=== PATIENT | female | born 1945 | race Caucasian/White ===

== ENCOUNTER 2017-12-07 08:00 | Outpatient (CLI) | payer MEDICARE ==
[2015-02-20 12:46] VITALS: BMI 27.4
[~2017-12-07 08:00] MED LIST: CEFAZOLIN2 GM/50 ML IV; CELEXA20 MG PO; DEMEROL50 MG PO; HYDROCODONE-APA1 TAB PO; PREDNISONE10 MG PO; RESTORIL15 MG PO; VOLTAREN25 MG PO; ZESTRIL10 MG PO; [UNRECOGNIZED DRUG - MIXTURE] IV
== END 2017-12-07 09:00 | disposition home or self-care (01) ==
LOC: D.MAMMO 08:00
DX: Z12.31 Encounter for screening mammogram for malignant neoplasm of breast (principal)

== ENCOUNTER 2018-01-07 11:00 | Outpatient (CLI) | payer MEDICARE ==
[2015-02-20 12:46] VITALS: BMI 27.4
== END 2018-01-07 11:40 | disposition left against medical advice (07) ==
LOC: D.MAMMO 11:00
DX: R92.8 Other abnormal and inconclusive findings on diagnostic imaging of breast (principal)

== ENCOUNTER 2018-05-25 10:05 | Inpatient (IN) | payer MEDICARE, MEDICAID ==
[~2018-05-25] VITALS: Ht 154.9 cm; Wt 60.5 kg
[2018-05-25] MEDS ORDERED: NORVASC10 MG PO (10:24)
[2018-05-25] MEDS ORDERED: CATAPRES0.1 MG PO (10:24)
[2018-05-25] MEDS ORDERED: BREO ELLIPTA 21 EACH (10:25)
[2018-05-25] MEDS ORDERED: ZITHROMAX250 MG PO (10:25)
[2018-05-25] MEDS ORDERED: METOPROLOL TART50 MG PO (10:26)
[2018-05-25] MEDS ORDERED: ALBUTEROL2.5 MG/3 M INH (10:26)
[2018-05-25] MEDS ORDERED: NORCO 10-325 TA1 TAB PO (10:27)
[2018-05-25 11:08] LABS: BASOPHILS 0.4 % (0-2); EOSINOPHILS 2.8 % (0-7); HEMATOCRIT 34.6 % (36.0-48.0); HEMOGLOBIN 11.1 g/dL (12-16); IMMATURE GRANULOCYTES 0.4 % (0-5); LYMPHOCYTES 12.1 % (15-50); MCH 28.7 pg (26.0-34.0); MCHC 32.1 g/dL (31.0-37.0); MCV 89.4 fL (80.0-100.0); MEAN PLATELET VOLUME 10.3 fL (7.4-10.4); NEUTROPHILS 77.3 % (40-80); PLATELET COUNT 468 10x3/uL (130-400); RBC 3.87 10x6/uL (4.00-5.40); RDW 15.2 % (11.5-14.5); WBC 13.9 10x3/uL (4.8-10.8)
[2018-05-25 11:28] LABS: ANION GAP 15.2 mmol/L (8-16); BILIRUBIN - TOTAL 0.28 mg/dL (0.2-1.3); CALCIUM 8.8 mg/dL (8.5-10.1); CARBON DIOXIDE 26.7 mmol/L (21.0-32.0); CREATININE - SERUM 0.8 mg/dL (0.6-1.3); POTASSIUM - SERUM 3.9 mmol/L (3.5-5.1); PROTEIN - SERUM 7.3 g/dL (6.4-8.2)
[2018-05-25 13:25] LABS: APPEARANCE CLEAR (CLEAR); BILIRUBIN NEGATIVE (NEGATIVE); COLOR YELLOW (YELLOW); EPITHELIAL CELLS 0-5 /hpf (0-5); GLUCOSE NEGATIVE (NEGATIVE); KETONE SMALL mg/dL (NEGATIVE); NITRITE NEGATIVE (NEGATIVE); PROTEIN NEGATIVE (NEGATIVE); RED CELLS - URINE NONE SEEN /hpf (0-5); SPECIFIC GRAVITY 1.015 (1.005-1.020); UROBILINOGEN NORMAL (NORMAL); WHITE CELLS - URINE NSEEN /hpf (0-5)
[2018-05-25 15:54] VITALS: BP 136/67
[2018-05-25 16:21] VITALS: BP 136/67; BMI 24.6
[2018-05-25 20:00] VITALS: BP 117/61
[2018-05-26] VITALS: BP 123/51
[2018-05-26 04:00] VITALS: BP 126/72
[2018-05-26 05:24] LABS: BASOPHILS 0.3 % (0-2); EOSINOPHILS 1.8 % (0-7); HEMATOCRIT 31.6 % (36.0-48.0); HEMOGLOBIN 10.1 g/dL (12-16); IMMATURE GRANULOCYTES 0.3 % (0-5); LYMPHOCYTES 14.8 % (15-50); MCH 28.5 pg (26.0-34.0); MEAN PLATELET VOLUME 9.7 fL (7.4-10.4); MONOCYTES 9.3 % (2-11); NEUTROPHILS 73.5 % (40-80); PLATELET COUNT 409 10x3/uL (130-400); RBC 3.55 10x6/uL (4.00-5.40); RDW 14.9 % (11.5-14.5); WBC 11.7 10x3/uL (4.8-10.8)
[2018-05-26 05:47] LABS: ALBUMIN 2.5 g/dL (3.4-5.0); ANION GAP 11.6 mmol/L (8-16); BILIRUBIN - TOTAL 0.21 mg/dL (0.2-1.3); CALCIUM 9.1 mg/dL (8.5-10.1); CARBON DIOXIDE 30.6 mmol/L (21.0-32.0); CREATININE - SERUM 0.8 mg/dL (0.6-1.3); MAGNESIUM - SERUM 1.8 mg/dL (1.8-2.4); POTASSIUM - SERUM 4.2 mmol/L (3.5-5.1); PROTEIN - SERUM 6.4 g/dL (6.4-8.2)
[2018-05-26 07:53] VITALS: BP 123/42
[2018-05-26 11:41] VITALS: BP 137/72
[2018-05-26] MEDS ORDERED: CYCLOBENZAPRINE10 MG PO (12:36)
[2018-05-26 13:07] VITALS: BMI 24.5
[2018-05-26 15:02] VITALS: BP 114/65
[2018-05-26] MEDS ORDERED: RESTORIL15 MG PO (15:24)
[2018-05-26 20:00] VITALS: BP 136/77
[2018-05-27] VITALS: BP 112/70
[2018-05-27 04:00] VITALS: BP 130/61
[2018-05-27 06:20] LABS: BASOPHILS 0.3 % (0-2); EOSINOPHILS 1.9 % (0-7); HEMATOCRIT 32.2 % (36.0-48.0); HEMOGLOBIN 10.3 g/dL (12-16); IMMATURE GRANULOCYTES 0.4 % (0-5); LYMPHOCYTES 18.1 % (15-50); MCH 28.6 pg (26.0-34.0); MCV 89.4 fL (80.0-100.0); MEAN PLATELET VOLUME 9.9 fL (7.4-10.4); MONOCYTES 9.6 % (2-11); NEUTROPHILS 69.7 % (40-80); PLATELET COUNT 423 10x3/uL (130-400); RDW 14.9 % (11.5-14.5); WBC 11.9 10x3/uL (4.8-10.8)
[2018-05-27 06:48] LABS: ALBUMIN 2.5 g/dL (3.4-5.0); ALKALINE PHOSPHATASE 116 U/L (46-116); ALT (SGPT) 18 U/L (10-68); CALC OSMOLALITY 272 mosm/kg (275-300); CALCIUM 8.8 mg/dL (8.5-10.1); CARBON DIOXIDE 30.6 mmol/L (21.0-32.0); CHLORIDE - SERUM 99 mmol/L (98-107); CREATININE - SERUM 0.7 mg/dL (0.6-1.3); GLUCOSE 95 mg/dL (74-106); MAGNESIUM - SERUM 1.7 mg/dL (1.8-2.4); POTASSIUM - SERUM 4.1 mmol/L (3.5-5.1); PROTEIN - SERUM 6.4 g/dL (6.4-8.2); SODIUM 138 mmol/L (136-145); eGFR NON AFRICAN AMERICAN 87 mL/min (90-120)
[2018-05-27 06:53] LABS: UREA NITROGEN 5 mg/dL (7-18)
[2018-05-27 08:34] VITALS: BP 137/56
--- NOTE | 2018-05-27 09:41 | EC ---
PATIENT:JORGE GARCIA DATE OF SERVICE: 05/25/18 SEX: F MEDICAL RECORD: [id number] DATE OF : 45 LOCATION:D.M2 D.213 AGE OF PATIENT: 73 ADMISSION DATE: 05/25/18 REFERRING PHYSICIAN: INTERPRETING PHYSICIAN: MARY ROSS MD ECHOCARDIOGRAM REPORT ECHO CHARGES 4 ECHO COMPLETE Date: 05/26/18 CLINICAL DIAGNOSIS: DYSPNEA HX OF HTN ECHOCARDIOGRAPHIC MEASUREMENTS (adult normal given) AC root (d.<3.7cm) 4.2 cm LV Septum d (<1.2 cm> 1.2 cm Valve Excursion 1.5 cm LV Septum (systole) 1.5 cm Left Atria (s.<4.0cm> 3.5 cm LVPW d(<1.2cm) 1.7 cm RV (d.<2.3cm) 3.1 cm LVPW (sytole) 1.9 cm LV diastole(<5.6CM) 4.4 cm MV E-F(>70mm/sec) cm LV systole 2.6 cm LVOT Diameter 1.9 cm MV exc.(>10mm) cm Est.ejection fraction (50-75%) % DOPPLER: LVIT cm/sec A 106 cm/sec E 78.0 cm/sec LA cm/sec RVSP 37 mmHg LVOT 123 cm/sec AOP1/2T m/s Asc. Ao 188 cm/sec RVOT 88 cm/sec RA cm/sec PA 134 cm/sec AV Gradient Peak 14.13mmHg AV Mean 6.51 mmHg AV Area 2.3 cm MV Gradient Peak 4.30 mmHg MV Mean 1.72 mmHg MV Area cm COMMENTS: Road Mender: 2 RISHI BERMUDEZ Automatic Coin Machine Mechanic: 1 Dr. Ross TAPE# PACS Pericardial Effusion Y DATE OF SERVICE: FINDINGS: 1. Left ventricular chamber size is within normal limits. Left ventricular systolic function is normal. Overall ejection fraction estimated at 60%. 2. Left atrium, right atrium, and right ventricular chamber sizes are within normal limits. 3. Valvular structures have normal structure and motion. 4. Doppler interrogation reveals only tqik-id-nymhyfcc tricuspid regurgitation. No other valvular insufficiency or stenosis. Pulmonary systolic pressure is ECHOCARDIOGRAM REPORT [id number] JORGE GARCIA estimated 37 mmHg. 5. No evidence of pericardial effusion or left ventricular thrombus. TRANSINT:[id number] Voice Confirmation ID: [id number] DOCUMENT ID: [id number] MARY ROSS MD at 0941 CC: [id number] DICTATION DATE: 05/26/18 1250 LAP RUNNER: 05/26/18 1436 ADM IN [facility] [address] [place] [address]
[2018-05-27 11:28] VITALS: BP 139/73
[2018-05-27 16:09] VITALS: BP 128/65
[2018-05-27 20:00] VITALS: BP 140/67
[2018-05-27 20:22] VITALS: Ht 154.9 cm; Wt 60.5 kg
[2018-05-28] VITALS: BP 128/64
[2018-05-28 04:00] VITALS: BP 127/76
[2018-05-28 06:39] LABS: BASOPHILS 0.5 % (0-2); EOSINOPHILS 2.3 % (0-7); HEMATOCRIT 32.9 % (36.0-48.0); HEMOGLOBIN 10.5 g/dL (12-16); IMMATURE GRANULOCYTES 0.3 % (0-5); LYMPHOCYTES 13.6 % (15-50); MCH 28.5 pg (26.0-34.0); MCHC 31.9 g/dL (31.0-37.0); MCV 89.2 fL (80.0-100.0); MEAN PLATELET VOLUME 9.9 fL (7.4-10.4); MONOCYTES 7.1 % (2-11); NEUTROPHILS 76.2 % (40-80); PLATELET COUNT 433 10x3/uL (130-400); RBC 3.69 10x6/uL (4.00-5.40); RDW 14.8 % (11.5-14.5); WBC 11.9 10x3/uL (4.8-10.8)
[2018-05-28 07:21] LABS: ALBUMIN 2.5 g/dL (3.4-5.0); ALKALINE PHOSPHATASE 110 U/L (46-116); ALT (SGPT) 21 U/L (10-68); BILIRUBIN - TOTAL 0.21 mg/dL (0.2-1.3); CALC OSMOLALITY 272 mosm/kg (275-300); CALCIUM 9.1 mg/dL (8.5-10.1); CHLORIDE - SERUM 101 mmol/L (98-107); CREATININE - SERUM 0.6 mg/dL (0.6-1.3); GLUCOSE 96 mg/dL (74-106); MAGNESIUM - SERUM 1.9 mg/dL (1.8-2.4); POTASSIUM - SERUM 3.7 mmol/L (3.5-5.1); PROTEIN - SERUM 6.5 g/dL (6.4-8.2); SODIUM 138 mmol/L (136-145); UREA NITROGEN 5 mg/dL (7-18); eGFR NON AFRICAN AMERICAN > 90 mL/min (90-120)
[2018-05-28 09:02] VITALS: BP 132/60
[2018-05-28 13:32] VITALS: BP 113/38
[2018-05-28 16:49] VITALS: BP 122/51
[2018-05-28 20:30] VITALS: BP 130/54
[2018-05-29 00:30] VITALS: BP 126/58
[2018-05-29 04:30] VITALS: BP 129/68
[2018-05-29 06:13] LABS: BASOPHILS 0.3 % (0-2); EOSINOPHILS 2.8 % (0-7); HEMATOCRIT 30.9 % (36.0-48.0); HEMOGLOBIN 9.8 g/dL (12-16); IMMATURE GRANULOCYTES 0.5 % (0-5); LYMPHOCYTES 11.4 % (15-50); MCH 28.5 pg (26.0-34.0); MCHC 31.7 g/dL (31.0-37.0); MCV 89.8 fL (80.0-100.0); MEAN PLATELET VOLUME 9.7 fL (7.4-10.4); MONOCYTES 10.1 % (2-11); NEUTROPHILS 74.9 % (40-80); PLATELET COUNT 416 10x3/uL (130-400); RBC 3.44 10x6/uL (4.00-5.40); RDW 14.8 % (11.5-14.5); WBC 11.6 10x3/uL (4.8-10.8)
[2018-05-29 06:47] LABS: ALBUMIN 2.4 g/dL (3.4-5.0); ANION GAP 11.2 mmol/L (8-16); BILIRUBIN - TOTAL 0.17 mg/dL (0.2-1.3); CALCIUM 8.8 mg/dL (8.5-10.1); CARBON DIOXIDE 29.7 mmol/L (21.0-32.0); MAGNESIUM - SERUM 1.7 mg/dL (1.8-2.4); POTASSIUM - SERUM 3.9 mmol/L (3.5-5.1); PROTEIN - SERUM 6.2 g/dL (6.4-8.2)
[2018-05-29 06:48] LABS: CREATININE - SERUM 0.8 mg/dL (0.6-1.3)
[2018-05-29 09:32] VITALS: BP 139/68
[2018-05-29 13:17] VITALS: BP 119/49
[2018-05-29 17:22] VITALS: BP 137/54
[2018-05-29 20:30] VITALS: BP 146/80
[2018-05-30 00:30] VITALS: BP 127/55
[2018-05-30 04:30] VITALS: BP 135/61
[2018-05-30 06:09] LABS: BASOPHILS 0.3 % (0-2); EOSINOPHILS 2.7 % (0-7); HEMOGLOBIN 9.5 g/dL (12-16); IMMATURE GRANULOCYTES 0.3 % (0-5); MCH 28.4 pg (26.0-34.0); MCHC 31.7 g/dL (31.0-37.0); MCV 89.8 fL (80.0-100.0); MEAN PLATELET VOLUME 9.5 fL (7.4-10.4); MONOCYTES 8.1 % (2-11); NEUTROPHILS 76.6 % (40-80); PLATELET COUNT 394 10x3/uL (130-400); RBC 3.34 10x6/uL (4.00-5.40); RDW 14.6 % (11.5-14.5); WBC 10.4 10x3/uL (4.8-10.8)
[2018-05-30 06:44] LABS: ALBUMIN 2.4 g/dL (3.4-5.0); ANION GAP 11.5 mmol/L (8-16); BILIRUBIN - TOTAL 0.14 mg/dL (0.2-1.3); CARBON DIOXIDE 30.6 mmol/L (21.0-32.0); CREATININE - SERUM 0.8 mg/dL (0.6-1.3); POTASSIUM - SERUM 4.1 mmol/L (3.5-5.1)
[2018-05-30 06:53] LABS: INR 1.05 (0.85-1.17); PROTIME 13.2 SECONDS (11.6-15.0)
[2018-05-30 08:24] VITALS: BP 136/71
[2018-05-30 10:59] VITALS: BP 133/68
[2018-05-30 15:55] VITALS: BP 126/78
[2018-05-30 20:00] VITALS: BP 136/71
[2018-05-31] VITALS (12 sets, daily range): BP systolic 106–150; BP diastolic 58–76
[2018-05-31 06:21] LABS: BASOPHILS 0.5 % (0-2); EOSINOPHILS 2.3 % (0-7); HEMATOCRIT 29.9 % (36.0-48.0); HEMOGLOBIN 9.4 g/dL (12-16); IMMATURE GRANULOCYTES 0.4 % (0-5); LYMPHOCYTES 12.1 % (15-50); MCHC 31.4 g/dL (31.0-37.0); MEAN PLATELET VOLUME 9.8 fL (7.4-10.4); MONOCYTES 10.1 % (2-11); NEUTROPHILS 74.6 % (40-80); PLATELET COUNT 417 10x3/uL (130-400); RBC 3.36 10x6/uL (4.00-5.40); RDW 14.4 % (11.5-14.5); WBC 10.9 10x3/uL (4.8-10.8)
[2018-05-31 06:45] LABS: ALBUMIN 2.6 g/dL (3.4-5.0); BILIRUBIN - TOTAL 0.2 mg/dL (0.2-1.3); CALCIUM 9.1 mg/dL (8.5-10.1); CARBON DIOXIDE 29.9 mmol/L (21.0-32.0); CREATININE - SERUM 0.8 mg/dL (0.6-1.3); POTASSIUM - SERUM 3.9 mmol/L (3.5-5.1); PROTEIN - SERUM 6.4 g/dL (6.4-8.2)
[2018-05-31 16:11] LABS: PROTEIN - BODY FLUID 3.2 G/DL
[2018-05-31 22:16] LABS: MACROPHAGES BF 12 %; MESOTHELIALS BF 14 %; NEUT - BF 5 %
[2018-06-01 01:14] VITALS: BP 111/66
[2018-06-01 05:54] VITALS: BP 103/54
[2018-06-01 08:44] VITALS: BP 101/69
[2018-06-01 13:07] VITALS: BP 159/63
[2018-06-01 13:18] LABS: FUNGUS STAIN Final report (())
[2018-06-01 14:20] LABS: ACID FAST SMEAR Negative (()); AFB SPECIMEN PROCESSING Concentration (())
--- NOTE | 2018-06-01 17:16 | MORECARE ---
CASE MANAGEMENT DISCHARGE SUMMARY PATIENT: JORGE GARCIA UNIT: [id number] ADM DATE: 05/25/18 AGE: 73 : 45 SEX: F ROOM/BED: D.3868 AUTHOR: SHANTANU LAWLER PHYSICIAN: REFERRING PHYSICIAN: ANA MARIA JEFFERY MD DATE OF SERVICE: 06/01/18 Discharge Plan Patient Name: JORGE GARCIA Facility: [facility]:[place] : 1945 Planned Disposition: Home Anticipated Discharge Date: 06/02/18 Discharge Date: Expected LOS: 8 Initial Reviewer: [id number] Initial Review Date: 06/01/2018 Generated: 06/01/18 6:16 pm External Providers [facility] Next Contact Date: 06/02/2018 Service Request Date: Service Type: Resolution: Reviewer: Comments: Patient Name: JORGE GARCIA Page 00115 at 1716 All edits/amendments must be made on the electronic document DICTATION DATE: 06/01/181714 ACCOUNT DEVELOPMENT REPRESENTATIVE: NISSA 06/01/181714 RPT#: [id number] UT DATE: STATUS: ADM IN [facility] [address] [place] [address] END OF REPORT
--- NOTE | 2018-06-01 17:26 | MORECARE ---
CASE MANAGEMENT DISCHARGE SUMMARY PATIENT: JORGE GARCIA UNIT: [id number] ADM DATE: 05/25/18 AGE: 73 : 45 SEX: F ROOM/BED: D.9741 AUTHOR: BUCKYDOC PHYSICIAN: REFERRING PHYSICIAN: ANA MARIA JEFFERY MD DATE OF SERVICE: 06/01/18 Discharge Plan Patient Name: JORGE GARCIA Facility: [facility]:[place] : 1945 Planned Disposition: Home Anticipated Discharge Date: 06/02/18 Discharge Date: Expected LOS: 8 Initial Reviewer: [id number] Initial Review Date: 06/01/2018 Generated: 06/01/18 6:25 pm Comments DCP- Discharge Planning Updated by [id number]: Frankie Subramanian on 06/01/18 4:[address] Patient Name: JORGE GARCIA Admission Status: ER Accout number: [id number] Admission Date: 05-25-2018 : 1945 Admission Diagnosis:SHORTNESS OF BREATH Attending: ANA MARIA ARREDONDO Current LOS: 7 Anticipated DC Date: 06-02-2018 Planned Disposition: Home Primary Insurance: WELLC[employer] MEDICARE ADV Discharge Planning Comments: CM RECEIVED ORDER FOR OXYGEN TESTING AND NEBULIZER. CM MET WITH PT IN ROOM TO DISCUSS DISCHARGE PLANNING AND NEEDS. PT REPORTS LIVING AT HOME INDEPENDENTLY AND ALONE IN RV TRAILOR BESIDE HER DAUGHTERS HOME. PT HAS A NEBULIZER AND NO MEDICAL EQUIPMENT PROVIDER PREFERENCE. PT HAS NO OUTSIDE SERVICES ASSISTING IN THE HOME. CM DISCUSSED AVAILABILITY OF HOME HEALTH, REHAB SERVICES AND MEDICAL EQUIPMENT. PT DENIES DISCHARGE NEEDS, OTHER THAN OXYGEN REPORTS HER FAMILY WILL PICK HER UP FOR DISCHARGE HOME TOMORROW. IMPORTANT MESSAGE FROM MEDICARE PROVIDED AND EXPLAINED. CM WAITING OXYGEN TESTING AND WILL ARRANGE HOME OXYGEN IF PT QUALIFIES. Scalper Operator: Frankie Subramanian DCPIA - Discharge Planning Initial Assessment Updated by [id number]: Frankie Subramanian on 06/01/18 5:18 pm * Is the patient Alert and Oriented? Yes * How many steps to enter\exit or inside your home? 4- 2-I * PCP DR. MONTE * Pharmacy [facility] IN [place] * Preadmission Environment Home with Family * ADLs Independent * Equipment Nebulizer * Other Equipment NO MEDICAL EQUIPMENT PROVIDER PREFERNECE * List name and contact numbers for known caregivers / representatives who currently or will assist patient after discharge: LUCRETIA CUELLO, DTR, * Verbal permission to speak to the caregivers and representatives has been obtained from the patient. N/A * Community resources currently utilized None * Please name any agencies selected above. NONE * Additional services required to return to the preadmission environment? No * Can the patient safely return to the preadmission environment? Yes * Has this patient been hospitalized within the prior 30 days at any hospital? No Coverage Notice Reviewer: [id number] Baldo Subramanian Notice Issued Date-Time: 06/01/2018 11:50 Notice Type: IM Discharge Notice Notice Delivered To: Patient Relationship to Patient: Boom Truck Driver Name: Delivery Method: HAND - Hand Delivered Danuta Days: Prior Verbal Notification: Recipient Understood Notice: Yes Recipient Signature: Yes Med Rec Note Co-signed by Attending: Coverage Notice Comment: Last DP export: 06/01/18 4:16 Patient Name: JORGE GARCIA Page 68770 at 1726 All edits/amendments must be made on the electronic document DICTATION DATE: 06/01/181724 PLODDING MACHINE OPERATOR: NISSA 06/01/181724 RPT#: [id number] DC DATE: STATUS: ADM IN [facility] [address] [place] [address] END OF REPORT
[2018-06-01 20:00] VITALS: BP 126/63
[2018-06-02] VITALS: BP 94/60
[2018-06-02 04:56] VITALS: BP 104/55
[2018-06-02 05:59] LABS: BASOPHILS 0.6 % (0-2); EOSINOPHILS 2.6 % (0-7); HEMATOCRIT 29.3 % (36.0-48.0); HEMOGLOBIN 9.3 g/dL (12-16); IMMATURE GRANULOCYTES 0.5 % (0-5); LYMPHOCYTES 14.4 % (15-50); MCHC 31.7 g/dL (31.0-37.0); MCV 88.3 fL (80.0-100.0); MEAN PLATELET VOLUME 9.6 fL (7.4-10.4); MONOCYTES 9.9 % (2-11); PLATELET COUNT 405 10x3/uL (130-400); RBC 3.32 10x6/uL (4.00-5.40); RDW 14.3 % (11.5-14.5); WBC 10.5 10x3/uL (4.8-10.8)
[2018-06-02 06:11] LABS: ANION GAP 10.8 mmol/L (8-16); CALCIUM 8.7 mg/dL (8.5-10.1); CREATININE - SERUM 0.8 mg/dL (0.6-1.3); POTASSIUM - SERUM 3.8 mmol/L (3.5-5.1)
[2018-06-02 08:46] VITALS: BP 120/65
--- NOTE | 2018-06-02 10:20 | MORECARE ---
CASE MANAGEMENT DISCHARGE SUMMARY PATIENT: JORGE GARCIA UNIT: [id number] ADM DATE: 05/25/18 AGE: 73 : 45 SEX: F ROOM/BED: D.6809 AUTHOR: BUCKYDOC PHYSICIAN: REFERRING PHYSICIAN: ANA MARIA JEFFERY MD DATE OF SERVICE: 06/02/18 Discharge Plan Patient Name: JORGE GARCIA Facility: [facility]:[place] : 1945 Planned Disposition: Home Anticipated Discharge Date: 06/02/18 Discharge Date: Expected LOS: 8 Initial Reviewer: [id number] Initial Review Date: 06/01/2018 Generated: 06/02/18 11:19 am Comments DCP- Discharge Planning Updated by [id number]: Frankie Subramanian on 06/01/18 4:[address] Patient Name: JORGE GARCIA Admission Status: ER Accout number: [id number] Admission Date: 05-25-2018 : 1945 Admission Diagnosis:SHORTNESS OF BREATH Attending: ANA MARIA ARREDONDO Current LOS: 7 Anticipated DC Date: 06-02-2018 Planned Disposition: Home Primary Insurance: WELLCARE MEDICARE ADV Discharge Planning Comments: CM RECEIVED ORDER FOR OXYGEN TESTING AND NEBULIZER. CM MET WITH PT IN ROOM TO DISCUSS DISCHARGE PLANNING AND NEEDS. PT REPORTS LIVING AT HOME INDEPENDENTLY AND ALONE IN RV TRAILOR BESIDE HER DAUGHTERS HOME. PT HAS A NEBULIZER AND NO MEDICAL EQUIPMENT PROVIDER PREFERENCE. PT HAS NO OUTSIDE SERVICES ASSISTING IN THE HOME. CM DISCUSSED AVAILABILITY OF HOME HEALTH, REHAB SERVICES AND MEDICAL EQUIPMENT. PT DENIES DISCHARGE NEEDS, OTHER THAN OXYGEN REPORTS HER FAMILY WILL PICK HER UP FOR DISCHARGE HOME TOMORROW. IMPORTANT MESSAGE FROM MEDICARE PROVIDED AND EXPLAINED. CM WAITING OXYGEN TESTING AND WILL ARRANGE HOME OXYGEN IF PT QUALIFIES. Swimming Instructor: Frankie Subramanian DCPIA - Discharge Planning Initial Assessment Updated by [email or web address]: Frankie Subramanian on 06/01/18 5:18 pm * Is the patient Alert and Oriented? Yes * How many steps to enter\exit or inside your home? 4- 2-I * PCP DR. MONTE * Pharmacy [facility] IN [place] * Preadmission Environment Home with Family * ADLs Independent * Equipment Nebulizer * Other Equipment NO MEDICAL EQUIPMENT PROVIDER PREFERNECE * List name and contact numbers for known caregivers / representatives who currently or will assist patient after discharge: LUCRETIA CUELLO, DTR, * Verbal permission to speak to the caregivers and representatives has been obtained from the patient. N/A * Community resources currently utilized None * Please name any agencies selected above. NONE * Additional services required to return to the preadmission environment? No * Can the patient safely return to the preadmission environment? Yes * Has this patient been hospitalized within the prior 30 days at any hospital? No Coverage Notice Reviewer: [id number] Baldo Subramanian Notice Issued Date-Time: 06/01/2018 11:50 Notice Type: IM Discharge Notice Notice Delivered To: Patient Relationship to Patient: Financial Director Name: Delivery Method: HAND - Hand Delivered Danuta Days: Prior Verbal Notification: Recipient Understood Notice: Yes Recipient Signature: Yes Med Rec Note Co-signed by Attending: Coverage Notice Comment: Last DP export: 06/01/18 4:26 Patient Name: JORGE GARCIA Page 07167 at 1020 All edits/amendments must be made on the electronic document DICTATION DATE: 06/02/18 1019 PIT OPERATOR: NISSA 06/02/18 1019 RPT#: [id number] DC DATE: STATUS: ADM IN [facility] [address] [place] [address] END OF REPORT
--- NOTE | 2018-06-02 10:27 | MORECARE ---
CASE MANAGEMENT DISCHARGE SUMMARY PATIENT: JORGE GARCIA UNIT: [id number] ADM DATE: 05/25/18 AGE: 73 : 45 SEX: F ROOM/BED: D.0972 AUTHOR: BUCKYDOC PHYSICIAN: REFERRING PHYSICIAN: ANA MARIA JEFFERY MD DATE OF SERVICE: 06/02/18 Discharge Plan Patient Name: JORGE GARCIA Facility: [facility]:[place] : 1945 Planned Disposition: Home Anticipated Discharge Date: 06/02/18 Discharge Date: Expected LOS: 8 Initial Reviewer: [email or web address] Initial Review Date: 06/01/2018 Generated: 06/02/18 11:27 am Comments DCP- Discharge Planning Updated by [id number]: Frankie Subramanian on 06/01/18 4:[address] Patient Name: JORGE GARCIA Admission Status: ER Accout number: [id number] Admission Date: 05-25-2018 : 1945 Admission Diagnosis:SHORTNESS OF BREATH Attending: ANA MARIA ARREDONDO Current LOS: 7 Anticipated DC Date: 06-02-2018 Planned Disposition: Home Primary Insurance: WELLCARE MEDICARE ADV Discharge Planning Comments: CM RECEIVED ORDER FOR OXYGEN TESTING AND NEBULIZER. CM MET WITH PT IN ROOM TO DISCUSS DISCHARGE PLANNING AND NEEDS. PT REPORTS LIVING AT HOME INDEPENDENTLY AND ALONE IN RV TRAILOR BESIDE HER DAUGHTERS HOME. PT HAS A NEBULIZER AND NO MEDICAL EQUIPMENT PROVIDER PREFERENCE. PT HAS NO OUTSIDE SERVICES ASSISTING IN THE HOME. CM DISCUSSED AVAILABILITY OF HOME HEALTH, REHAB SERVICES AND MEDICAL EQUIPMENT. PT DENIES DISCHARGE NEEDS, OTHER THAN OXYGEN REPORTS HER FAMILY WILL PICK HER UP FOR DISCHARGE HOME TOMORROW. IMPORTANT MESSAGE FROM MEDICARE PROVIDED AND EXPLAINED. CM WAITING OXYGEN TESTING AND WILL ARRANGE HOME OXYGEN IF PT QUALIFIES. Machine Setter Automatic: Frankie Subramanian DCPIA - Discharge Planning Initial Assessment Updated by [id number]: Frankie Subramanian on 06/01/18 5:18 pm * Is the patient Alert and Oriented? Yes * How many steps to enter\exit or inside your home? 4- 2-I * PCP DR. MONTE * Pharmacy [facility] [place] * Preadmission Environment Home with Family * ADLs Independent * Equipment Nebulizer * Other Equipment NO MEDICAL EQUIPMENT PROVIDER PREFERNECE * List name and contact numbers for known caregivers / representatives who currently or will assist patient after discharge: LUCRETIAMICHELLE CUELLO, DTR, * Verbal permission to speak to the caregivers and representatives has been obtained from the patient. N/A * Community resources currently utilized None * Please name any agencies selected above. NONE * Additional services required to return to the preadmission environment? No * Can the patient safely return to the preadmission environment? Yes * Has this patient been hospitalized within the prior 30 days at any hospital? No External Providers External Provider: Maria A Orellana Contact Date: 06/02/2018 Service Request Date: Service Type: Resolution: Reviewer: Comments: Coverage Notice Reviewer: [id number] Baldo Subramanian Notice Issued Date-Time: 06/01/2018 11:50 Notice Type: IM Discharge Notice Notice Delivered To: Patient Relationship to Patient: Specimen Collector Name: Delivery Method: HAND - Hand Delivered Danuta Days: Prior Verbal Notification: Recipient Understood Notice: Yes Recipient Signature: Yes Med Rec Note Co-signed by Attending: Coverage Notice Comment: Last DP export: 06/02/18 9:20 Patient Name: JORGE GARCIA Page 55189 at 1027 All edits/amendments must be made on the electronic document DICTATION DATE: 06/02/18 1027 MAINTENANCE MECHANIC ENGINE: NISSA 06/02/18 1027 RPT#: [id number] DC DATE: STATUS: ADM IN [facility] [address] [place] [address] END OF REPORT
--- NOTE | 2018-06-02 10:43 | MORECARE ---
CASE MANAGEMENT DISCHARGE SUMMARY PATIENT: JORGE GARCIA UNIT: [id number] ADM DATE: 05/25/18 AGE: 73 : 45 SEX: F ROOM/BED: D.5869 AUTHOR: SHANTANU LAWLER PHYSICIAN: REFERRING PHYSICIAN: ANA MARIA JEFFERY MD DATE OF SERVICE: 06/02/18 Discharge Plan Patient Name: JORGE GARCIA Facility: [facility]:[place] : 1945 Planned Disposition: Home Anticipated Discharge Date: 06/02/18 Discharge Date: Expected LOS: 8 Initial Reviewer: [email or web address] Initial Review Date: 06/01/2018 Generated: 06/02/18 11:43 am Comments DCP- Discharge Planning Updated by [id number]: Frankie Subramanian on 06/02/18 9:[address] Patient Name: JORGE GARCIA Encounter No: [id number] : 1945 Primary Insurance: WELLCARE MEDICARE ADV Anticipated DC Date: 06-02-2018 Planned Disposition: Home DCP follow-up note: CM RECEIVED OXYGEN TESTING AND ORDER, SPOKE TO PT IN ROOM WHO DENIES FURHTER NEEDS OTHER THAN OXYGEN, ASSURES CM SHE DOES HAVE NEBULIZER AT HOME. PT HAS NO PREFERENCE ON OXYGEN EQUIPMENT PROVIDER. CM CALLED [facility] WHO IS OUT OF NETWORK WITH PT'S INSURANCE. CM CALLED [facility] [place], , SPOKE TO CURTIS WHO TOOK REFERRAL THEY ARE IN NETWORK WITH PT'S INSURANCE AND SERVICE PT'S HOME AREA. CM FAXED REFERRAL TO [facility] [place] AT [phone]. [facility] [place] TO ARRANGE PORTABLE OXYGEN DELIVERY TO HOSPITAL FOR PT'S DISCHARGE HOME TODAY AND ARRANGE DELIVERY OF HOME OXYGEN WITH PT AFTER SHE ARRIVES AT HOME TODAY. Frankie Subramanian, CASE MANAGEMENT DCP- Discharge Planning Updated by [email or web address]: Frankie Subramanian on 06/01/18 4:[address] Patient Name: JORGE GARCIA Admission Status: ER Accout number: [id number] Admission Date: 05-25-2018 : 1945 Admission Diagnosis:SHORTNESS OF BREATH Attending: ANA MARIA ARREDONDO Current LOS: 7 Anticipated DC Date: 06-02-2018 Planned Disposition: Home Primary Insurance: WELLCARE MEDICARE ADV Discharge Planning Comments: CM RECEIVED ORDER FOR OXYGEN TESTING AND NEBULIZER. CM MET WITH PT IN ROOM TO DISCUSS DISCHARGE PLANNING AND NEEDS. PT REPORTS LIVING AT HOME INDEPENDENTLY AND ALONE IN RV TRAILOR BESIDE HER DAUGHTERS HOME. PT HAS A NEBULIZER AND NO MEDICAL EQUIPMENT PROVIDER PREFERENCE. PT HAS NO OUTSIDE SERVICES ASSISTING IN THE HOME. CM DISCUSSED AVAILABILITY OF HOME HEALTH, REHAB SERVICES AND MEDICAL EQUIPMENT. PT DENIES DISCHARGE NEEDS, OTHER THAN OXYGEN REPORTS HER FAMILY WILL PICK HER UP FOR DISCHARGE HOME TOMORROW. IMPORTANT MESSAGE FROM MEDICARE PROVIDED AND EXPLAINED. CM WAITING OXYGEN TESTING AND WILL ARRANGE HOME OXYGEN IF PT QUALIFIES. Headlight Adjuster: Frankie Subramanian DCPIA - Discharge Planning Initial Assessment Updated by [email or web address]: Frankie Subramanian on 06/01/18 5:18 pm * Is the patient Alert and Oriented? Yes * How many steps to enter\exit or inside your home? 4- 2-I * PCP DR. MONTE * Pharmacy [facility] [place] * Preadmission Environment Home with Family * ADLs Independent * Equipment Nebulizer * Other Equipment NO MEDICAL EQUIPMENT PROVIDER PREFERNECE * List name and contact numbers for known caregivers / representatives who currently or will assist patient after discharge: LUCRETIA CUELLO, DTR, * Verbal permission to speak to the caregivers and representatives has been obtained from the patient. N/A * Community resources currently utilized None * Please name any agencies selected above. NONE * Additional services required to return to the preadmission environment? No * Can the patient safely return to the preadmission environment? Yes * Has this patient been hospitalized within the prior 30 days at any hospital? No Coverage Notice Reviewer: [id number] - Frankie Subramanian Notice Issued Date-Time: 06/01/2018 11:50 Notice Type: IM Discharge Notice Notice Delivered To: Patient Relationship to Patient: Adult Family Home Program Manager Name: Delivery Method: HAND - Hand Delivered Danuta Days: Prior Verbal Notification: Recipient Understood Notice: Yes Recipient Signature: Yes Med Rec Note Co-signed by Attending: Coverage Notice Comment: Last DP export: 06/02/18 9:27 Patient Name: JORGE GARCIA Page 14451 at 1043 All edits/amendments must be made on the electronic document DICTATION DATE: 06/02/18 1042 RADIO PRESENTER: NISSA 06/02/18 1042 RPT#: [id number] DC DATE: STATUS: ADM IN [facility] [address] [place] [address] END OF REPORT
[2018-06-02] MEDS ORDERED: ATROVENT 0.02%2.5 ML UPD (11:09)
[2018-06-02] MEDS ORDERED: PULMICORT0.5 MG/21 UPD (11:09)
[2018-06-02] MEDS ORDERED: BROVANA15 MCG/2 M INH (11:09)
[2018-06-02] MEDS ORDERED: MUCINEX600 MG PO (11:10)
[2018-06-02] MEDS ORDERED: PROTONIX40 MG PO (11:10)
[2018-06-02 12:43] VITALS: BP 100/52
--- NOTE | 2018-06-03 08:56 | MORECARE ---
CASE MANAGEMENT DISCHARGE SUMMARY PATIENT: JORGE GARCIA UNIT: [id number] ADM DATE: 05/25/18 AGE: 73 : 45 SEX: F ROOM/BED: D.9983 AUTHOR: SHANTANU LAWLER PHYSICIAN: REFERRING PHYSICIAN: ANA MARIA JEFFERY MD DATE OF SERVICE: 06/03/18 Discharge Plan Patient Name: JORGE GARCIA Facility: [facility]:[place] : 1945 Planned Disposition: Home Anticipated Discharge Date: 06/02/18 Discharge Date: 06/02/2018 Expected LOS: 8 Initial Reviewer: [id number] Initial Review Date: 06/01/2018 Generated: 06/03/18 9:56 am Comments DCP- Discharge Planning Updated by [email or web address]: Frankie Subramanian on 06/02/18 9:[address] Patient Name: JORGE GARCIA Encounter No: [id number] : 1945 Primary Insurance: WELLCARE MEDICARE ADV Anticipated DC Date: 06-02-2018 Planned Disposition: Home DCP follow-up note: CM RECEIVED OXYGEN TESTING AND ORDER, SPOKE TO PT IN ROOM WHO DENIES FURHTER NEEDS OTHER THAN OXYGEN, ASSURES CM SHE DOES HAVE NEBULIZER AT HOME. PT HAS NO PREFERENCE ON OXYGEN EQUIPMENT PROVIDER. CM CALLED [facility] WHO IS OUT OF NETWORK WITH PT'S INSURANCE. CM CALLED [facility], , SPOKE TO CURTIS WHO TOOK REFERRAL THEY ARE IN NETWORK WITH PT'S INSURANCE AND SERVICE PT'S HOME AREA. CM FAXED REFERRAL TO [facility] AT [phone]. [facility] TO ARRANGE PORTABLE OXYGEN DELIVERY TO HOSPITAL FOR PT'S DISCHARGE HOME TODAY AND ARRANGE DELIVERY OF HOME OXYGEN WITH PT AFTER SHE ARRIVES AT HOME TODAY. Frankie Subramanian, CASE MANAGEMENT DCP- Discharge Planning Updated by [email or web address]: Frankie Subarmanian on 06/01/18 4:[address] Patient Name: JORGE GARCIA Admission Status: ER Accout number: [id number] Admission Date: 05-25-2018 : 1945 Admission Diagnosis:SHORTNESS OF BREATH Attending: ANA MARIA ARREDONDO Current LOS: 7 Anticipated DC Date: 06-02-2018 Planned Disposition: Home Primary Insurance: WELLCARE MEDICARE ADV Discharge Planning Comments: CM RECEIVED ORDER FOR OXYGEN TESTING AND NEBULIZER. CM MET WITH PT IN ROOM TO DISCUSS DISCHARGE PLANNING AND NEEDS. PT REPORTS LIVING AT HOME INDEPENDENTLY AND ALONE IN RV TRAILOR BESIDE HER DAUGHTERS HOME. PT HAS A NEBULIZER AND NO MEDICAL EQUIPMENT PROVIDER PREFERENCE. PT HAS NO OUTSIDE SERVICES ASSISTING IN THE HOME. CM DISCUSSED AVAILABILITY OF HOME HEALTH, REHAB SERVICES AND MEDICAL EQUIPMENT. PT DENIES DISCHARGE NEEDS, OTHER THAN OXYGEN REPORTS HER FAMILY WILL PICK HER UP FOR DISCHARGE HOME TOMORROW. IMPORTANT MESSAGE FROM MEDICARE PROVIDED AND EXPLAINED. CM WAITING OXYGEN TESTING AND WILL ARRANGE HOME OXYGEN IF PT QUALIFIES. Pro Shop Attendant: Frankie Subramanian DCPIA - Discharge Planning Initial Assessment Updated by [id number]: Frankie Subramanian on 06/01/18 5:18 pm * Is the patient Alert and Oriented? Yes * How many steps to enter\exit or inside your home? 4--I * PCP DR. MONTE * Pharmacy [facility] IN [place] * Preadmission Environment Home with Family * ADLs Independent * Equipment Nebulizer * Other Equipment NO MEDICAL EQUIPMENT PROVIDER PREFERNECE * List name and contact numbers for known caregivers / representatives who currently or will assist patient after discharge: LUCRETIA CUELLO, DTR, * Verbal permission to speak to the caregivers and representatives has been obtained from the patient. N/A * Community resources currently utilized None * Please name any agencies selected above. NONE * Additional services required to return to the preadmission environment? No * Can the patient safely return to the preadmission environment? Yes * Has this patient been hospitalized within the prior 30 days at any hospital? No Coverage Notice Reviewer: [id number] - Frankie Subramanian Notice Issued Date-Time: 06/01/2018 11:50 Notice Type: IM Discharge Notice Notice Delivered To: Patient Relationship to Patient: Industrial Machinery Mechanic Name: Delivery Method: HAND - Hand Delivered Danuta Days: Prior Verbal Notification: Recipient Understood Notice: Yes Recipient Signature: Yes Med Rec Note Co-signed by Attending: Coverage Notice Comment: Last DP export: 06/02/18 9:43 Patient Name: JORGE GARCIA Page 40581 at 0856 All edits/amendments must be made on the electronic document DICTATION DATE: 06/03/18 0856 LAMP SHADE ASSEMBLER: DM 06/03/18 0856 RPT#: [id number] DC DATE:06/02/18 STATUS: DIS IN [facility] [address] [place] [address] END OF REPORT
[2018-06-07 16:06] LABS: FUNGUS MYCOLOGY CULTURE Preliminary report (())
--- NOTE | 2018-06-09 15:07 | CN ---
PATIENT NAME:JORGE BOWMAN MEDICAL RECORD: [id number] : 45 LOCATION:. D.2138 ADMIT DATE: 05/25/18 ACCOUNT: [id number] CONSULTING PHYSICIAN: KEVIN WATERMAN MD REFERRING PHYSICIAN: ORLANDO LENNON MD DATE OF CONSULTATION: 05/26/2018 CONSULT REQUESTING PHYSICIAN: Orlando Lennon MD REASON FOR CONSULTATION: Pneumonia. HISTORY OF PRESENT ILLNESS: Ms. Bowman is a 73-year-old female who was treated for pneumonia a couple of weeks ago and she took courses of antibiotic. The patient was readmitted with worsening shortness of breath. There is cough with minimum sputum production. She is also complaining of shortness of breath. Denies any chest pain. There are no night sweats. REVIEW OF THE SYSTEMS: As in history of present illness. PAST MEDICAL HISTORY: 1. Pneumonia. 2. Arthritis. 3. Chronic backache. 4. Depression. ALLERGIES: SHE IS ALLERGIC TO SULFA, AMPICILLIN, AND NITROFURANTOIN. MEDICATIONS: She is on Levaquin 500 mg. Her other medication are reviewed. PERSONAL AND SOCIAL HISTORY: The patient is nonsmoker and nondrinker. FAMILY HISTORY: Significant for hypertension. PHYSICAL EXAMINATION: GENERAL: Now, the patient is lying comfortably in bed. She is not in acute distress. VITAL SIGNS: The blood pressure is 114/65, pulse is 81, respiration is 20, temperature is 98.1, and SpO2 is 90% on 3 liters nasal cannula. HEENT: Conjunctivae are pink. Sclerae are not icteric. NECK: Neck is supple. No JVD. CHEST: There are crackles at the right base. No wheezing. HEART: Rhythm regular. Normal sound. No murmur. ABDOMEN: Abdomen is soft. Bowel sounds present. No hepatosplenomegaly. RECTAL: Deferred. EXTREMITIES: No cyanosis. No clubbing. No pedal edema. CENTRAL NERVOUS SYSTEM: The patient is awake and alert. There is no obvious cranial nerve abnormality. The gait was not tested. DIAGNOSTIC DATA: Chest radiograph; there is infiltrate in right lower lobe. LABORATORY DATA: CBC; WBC 13.9, hemoglobin 11.1, hematocrit 34.6, and platelet count is 468. Chemistry; sodium 138, potassium is 4.2, chloride 100, BUN is 7, and creatinine is 0.8. IMPRESSION: CONSULT REPORT [id number] JORGE BOWMAN 1. Pneumonia, right lower lobe, consistent with community acquired. 2. Acute hypoxic respiratory failure. 3. Dyspnea on exertion. 4. Acute cough. 5. Leukocytosis. RECOMMENDATION: 1. Adjust the dose of Levaquin. 2. Start cefepime to cover for gram-negative cassy. 3. Speech pathology consultation for ruling out aspiration. 4. Get CT scan of the chest to rule out any obstruction. 5. Follow up labs and chest radiograph. Dr. Lennon, thank you for involving me in the care of Ms. Bowman. TRANSINT:[id number] Voice Confirmation ID: [id number] DOCUMENT ID: [id number] KEVIN WATERMAN MD at 1507 CC: [id number] DICTATION DATE: 05/26/181651 BENCH ASSEMBLER OPERATOR: 05/26/181927 DIS IN 06/02/18 [id number] [place] [address]
== END 2018-06-02 14:45 | disposition home or self-care (01) | DRG 843 ==
LOC: D.ER 10:05 → D.M2 13:52 → D.EDHOLD 13:52 → D.M2 13:53
PROVIDERS: Family Medicine; Internal Medicine Nephrology; Internal Medicine Pulmonary Disease; Radiology Diagnostic Radiology; Specialist; ADMIT Family Medicine Adult Medicine
PROC: 0BBK3ZX Excision of Right Lung, Percutaneous Approach, Diagnostic (ICD-10-PCS; principal; 2018-05-31 12:39)
DX: C7A.8 Other malignant neuroendocrine tumors (principal); J18.9 Pneumonia, unspecified organism; F33.0 Major depressive disorder, recurrent, mild; I10 Essential (primary) hypertension

== ENCOUNTER 2018-06-08 08:51 | Inpatient (IN) | payer MEDICARE, MEDICAID ==
[2018-06-08] VITALS (9 sets, daily range): BP systolic 107–143; BP diastolic 55–80; BMI 24.6
[~2018-06-08] VITALS: Ht 154.9 cm; Wt 59.0 kg
[~2018-06-08 08:51] MED LIST changes: +ALBUTEROL2.5 MG/3 M INH; +ATROVENT 0.02%2.5 ML UPD; +BREO ELLIPTA 21 EACH; +BROVANA15 MCG/2 M INH; +CATAPRES0.1 MG PO; +CYCLOBENZAPRINE10 MG PO; +METOPROLOL TART50 MG PO; +MUCINEX600 MG PO; +NORCO 10-325 TA1 TAB PO; +NORVASC10 MG PO; +PROTONIX40 MG PO; +PULMICORT0.5 MG/21 UPD; +ZITHROMAX250 MG PO
[2018-06-08 09:38] LABS: BASOPHILS 0.1 % (0-2); EOSINOPHILS 0.3 % (0-7); HEMATOCRIT 27.9 % (36.0-48.0); HEMOGLOBIN 9.2 g/dL (12-16); IMMATURE GRANULOCYTES 0.7 % (0-5); LYMPHOCYTES 6.2 % (15-50); MCH 28.1 pg (26.0-34.0); MCV 85.3 fL (80.0-100.0); MEAN PLATELET VOLUME 9.8 fL (7.4-10.4); MONOCYTES 7.4 % (2-11); NEUTROPHILS 85.3 % (40-80); RBC 3.27 10x6/uL (4.00-5.40); WBC 19.4 10x3/uL (4.8-10.8)
[2018-06-08 09:40] LABS: PLATELET COUNT 505 10x3/uL (130-400)
[2018-06-08 10:55] LABS: MAGNESIUM - SERUM 2.1 mg/dL (1.8-2.4)
--- NOTE | 2018-06-08 11:04 | NUR ---
ROCEPHIN STOPPED AT 1104.
[2018-06-08 11:12] LABS: ALBUMIN 2.7 g/dL (3.4-5.0); ALKALINE PHOSPHATASE 123 U/L (46-116); ALT (SGPT) 24 U/L (10-68); BILIRUBIN - TOTAL 0.37 mg/dL (0.2-1.3); CALC OSMOLALITY 255 mosm/kg (275-300); CALCIUM 9.1 mg/dL (8.5-10.1); CARBON DIOXIDE 25.3 mmol/L (21.0-32.0); CREATINE KINASE 357 UL (21-215); GLUCOSE 94 mg/dL (74-106); POTASSIUM - SERUM 3.8 mmol/L (3.5-5.1); PRO BNP 889 pg/mL (0-125); PROTEIN - SERUM 7.3 g/dL (6.4-8.2); SODIUM 124 mmol/L (136-145); TROPONIN-I < 0.017 ng/mL (0.000-0.060); UREA NITROGEN 30 mg/dL (7-18); eGFR NON AFRICAN AMERICAN 58 mL/min (90-120)
[2018-06-08 11:25] LABS: CHLORIDE - SERUM 85 mmol/L (98-107)
--- NOTE | 2018-06-08 11:30 | NUR ---
RECEIVED PT FROM ER VIA STRETCHER, ACCOMPANIED BY HOSPITAL STAFF. PT ALERT AND ORIENTED. CHIEF COMPLAINT IS SOB. PT HAS BLE EDEMA. HX OF COPD. UP AD AVINASH, BUT GETS SOB EASILY. PT DX WITH PNEUMONIA/PLEURAL EFFUSION-WORSENING. MASS FOUND ON RIGHT LUNG. FAMILY AT BEDSIDE. IV TO RIGHT HAND, SL. SITE PATENT AND WITHOUT REDNESS OR SWELLING. ROCEPHIN GIVEN IN ER. PT ON 2L O2, NC. NO C/O PAIN. NO S/S OF ACUTE DISTRESS NOTED. CALL LIGHT IN REACH. PT DENIES ANYTHING FURTHER AT THIS TIME. WILL CONTINUE TO MONITOR.
--- NOTE | 2018-06-08 11:45 | NUR ---
LAB CALLED IN A CL, CHLORIDE 85. NOTIFIED SALVATORE. NO C/O PAIN. NO S/S OF DISTRESS NOTED.
--- NOTE | 2018-06-08 13:10 | NUR ---
PT C/O NAUSEA. PT VOMITING EMESIS. CALLED JANETTE [facility]ASE. ZOAN ORDERED.
--- NOTE | 2018-06-08 18:04 | NUR ---
PT SITTING UP IN BED. NO C/O PAIN. NO S/S OF DISTRESS NOTED. SON AT BEDSIDE. PT DENIES ANYTHING FURTHER AT THIS TIME. CALL LIGHT IN REACH. WILL CONTINUE TO MONITOR.
--- NOTE | 2018-06-08 20:00 | NUR ---
ASSESSMENT PER FLOWSHEET. IV PATENT RT HAND OF NS AT 10CC'S/HR. TELM. SHOWS ST W/PAC'S HR 101.
--- NOTE | 2018-06-08 20:49 | NUR ---
PT REQUESTING HER SLEEPING MED AND PAIN PILL. RESTORIL 30MG PO GIVEN FOR SLEEP. NORCO 10 TAB ONE PO GIVEN FOR PAIN IN BACK AREA. UP TO BSC VOIDS WELL.O2 ON 4L/M PER NC
--- NOTE | 2018-06-08 21:45 | NUR ---
SEWAGE TREATMENT PLANT OPERATOR HERE TO DO CT SCAN OF ABDOMEN. COULD NOT DO PATIENT SOUND ASLEEP. WILL DO IN AM.
--- NOTE | 2018-06-09 | NUR ---
RT TECH HERE TO DO UPDRAFT TX PT REMAINS ASLEEP. SR UP X2 CALL LIGHT WITHIN REACH.
[2018-06-09 00:44] VITALS: BP 124/64
--- NOTE | 2018-06-09 02:30 | NUR ---
PT AWAKE UP TO BSC VOIDS WELL.
--- NOTE | 2018-06-09 04:07 | NUR ---
C/O BACK PAIN NORCO 10 TAB ONE PO GIVEN FOR PAIN CONTROL.
[2018-06-09 04:39] LABS: BASOPHILS 0.2 % (0-2); EOSINOPHILS 0.4 % (0-7); HEMATOCRIT 26.7 % (36.0-48.0); HEMOGLOBIN 8.9 g/dL (12-16); IMMATURE GRANULOCYTES 0.4 % (0-5); LYMPHOCYTES 7.5 % (15-50); MCH 28.3 pg (26.0-34.0); MCHC 33.3 g/dL (31.0-37.0); MEAN PLATELET VOLUME 9.4 fL (7.4-10.4); MONOCYTES 9.5 % (2-11); PLATELET COUNT 477 10x3/uL (130-400); RBC 3.14 10x6/uL (4.00-5.40)
[2018-06-09 05:10] VITALS: BP 108/54
[2018-06-09 05:12] LABS: ALBUMIN 2.4 g/dL (3.4-5.0); ALKALINE PHOSPHATASE 108 U/L (46-116); ALT (SGPT) 25 U/L (10-68); BILIRUBIN - TOTAL 0.29 mg/dL (0.2-1.3); CALCIUM 8.8 mg/dL (8.5-10.1); CARBON DIOXIDE 29.4 mmol/L (21.0-32.0); CHLORIDE - SERUM 87 mmol/L (98-107); GLUCOSE 98 mg/dL (74-106); PROTEIN - SERUM 6.6 g/dL (6.4-8.2); SODIUM 126 mmol/L (136-145); eGFR NON AFRICAN AMERICAN 87 mL/min (90-120)
[2018-06-09 05:16] LABS: CALC OSMOLALITY 255 mosm/kg (275-300); CREATININE - SERUM 0.7 mg/dL (0.6-1.3); UREA NITROGEN 21 mg/dL (7-18)
--- NOTE | 2018-06-09 05:16 | NUR ---
EYES CLOSED RESPIRATIONS WITH EASE AND UNLABORED.
[2018-06-09 08:48] VITALS: BP 117/60
--- NOTE | 2018-06-09 10:19 | NUR ---
PT BEING TAKEN TO CT BY TECH, PT STATED THAT PAIN MEDICINE IS NOT HELPING HER, PT ALSO HAS IV PAIN MEDS, ADVISED WILL ADMINISTER THE ORDER FOR THAT PAIN MED WHEN SHE RETURNS AND SEE IF THAT HELPS. NO OTHER NEEDS VOICED, CONTINUE WITH PLAN OF CARE
--- NOTE | 2018-06-09 11:55 | NUR ---
PT IV IN PT RT WRIST INFILTRATED, RESITED PT IV TO RT FOREARM. FAMILY AT BEDSIDE, CONTINUE WITH PLAN OF CARE
[2018-06-09 12:14] VITALS: BMI 24.5
[2018-06-09 12:45] VITALS: BP 107/51
[2018-06-09 13:48] VITALS: Ht 154.9 cm; Wt 59.0 kg
--- NOTE | 2018-06-09 15:07 | CN ---
PATIENT NAME:JORGE BOWMAN MEDICAL RECORD: [id number] : 45 LOCATION:D.MS Sommers221Jareth ADMIT DATE: 06/08/18 ACCOUNT: [id number] CONSULTING PHYSICIAN: KEVIN WATERMAN MD REFERRING PHYSICIAN: ANGY MOTT MD DATE OF CONSULTATION: 06/08/2018 CONSULT REQUESTING PHYSICIAN: Malathi Rajput MD REASON FOR CONSULTATION: Dyspnea, recently diagnosed neuroendocrine tumor. HISTORY OF PRESENT ILLNESS: Ms. Bowman is a 73-year-old female, very well known to me. The patient was recently hospitalized with pneumonia, right-sided pleural effusion, and mass in right lower lobe. She underwent lung biopsy and it turned out to be a neuroendocrine tumor. For the last 2-3 days, she has orthopnea, PND, and swelling of both lower extremities. She has worsening shortness of breath. Denies any fever or any chill. There is no significant sputum production. REVIEW OF SYSTEMS: As in history of present illness. PAST MEDICAL HISTORY: 1. Pneumonia. 2. Right pleural effusion, possible parapneumonic. 3. Arthritis. 4. Chronic backache. 5. Depression. ALLERGIES: SHE IS ALLERGIC TO SULFA, AMPICILLIN, AND NITROFURANTOIN. MEDICATIONS: [place] was reviewed. PERSONAL AND SOCIAL HISTORY: The patient is nonsmoker and nondrinker. FAMILY HISTORY: Noncontributory. PHYSICAL EXAMINATION: GENERAL: Now, the patient is lying comfortably. She is not in acute distress. VITAL SIGNS: The blood pressure is 112/55, pulse is 85, respiration is 18, temperature is 98.1, and SpO2 is 90% on 2 liters nasal cannula. HEENT: Conjunctivae are pink. Sclerae are not icteric. NECK: Neck is supple. No JVD. CHEST: The chest excursion is minimal on both sides. There is dullness on percussion at the right base. There are crackles. No wheezing. HEART: Rhythm regular. Normal sound. No murmur. ABDOMEN: Abdomen is soft. Bowel sounds present. No hepatosplenomegaly. RECTAL: Deferred. EXTREMITIES: No cyanosis. No clubbing. There are 1+ pedal edema. CENTRAL NERVOUS SYSTEM: The patient is awake and alert. There is no obvious cranial nerve abnormality. The gait was not tested. LABORATORY DATA: CBC; WBC 19.4, hemoglobin 9.2, hematocrit 27.9, and platelet count is 505. Chemistry; sodium 124, potassium 3.8, BUN is 30, creatinine is 1, lactic acid 0.8. The proBNP is 889. Albumin is 2.7. CONSULT REPORT [id number] JORGE BOWMAN IMPRESSION: 1. Acute hypoxic respiratory failure. 2. Right pleural effusion. 3. Pneumonia, right lower lobe, possible hospital-acquired pneumonia, possible obstructive. 4. Mass, right lower lobe, consistent with neuroendocrine cancer. 5. Possible congestive heart failure. 6. Leukocytosis. RECOMMENDATION: 1. Start her on cefepime and Levaquin IV. 2. IV Lasix. 3. Check the cardiac echo. 4. Consult Dr. Cervantes. 5. Follow up labs and chest radiograph. 6. Albuterol/ipratropium nebulizer. Dr. Rajput, thank you for involving me in the care of Ms. Bowman. TRANSINT:[id number] Voice Confirmation ID: [id number] DOCUMENT ID: [id number] KEVIN WATERMAN MD at 1507 CC: [id number] DICTATION DATE: 06/08/18 1607 STOCKROOM KEEPER: 06/08/18 1841 ADM IN [facility] [address] [place] [address]
--- NOTE | 2018-06-09 15:16 | NUR ---
PATIENT IN BED WITH EYES CLOSED. IV INTACT. NO COMPLAINTS OR SIGNS OF DISTRESS. CALL LIGHT WITHIN REACH.
[2018-06-09 17:28] VITALS: BP 115/886
[2018-06-09 21:11] VITALS: BP 105/48
--- NOTE | 2018-06-10 | NUR ---
ASSESSMENT PER FLOWSHEET. IV PATENT RT ARM SITE CLEAR. REMAINS NPO FOR SURGERY PROCEDURE IN AM.RESTING QUIESTLY
[2018-06-10 04:34] VITALS: BP 124/54
[2018-06-10 06:46] LABS: BASOPHILS 0.4 % (0-2); EOSINOPHILS 0.8 % (0-7); HEMATOCRIT 28.9 % (36.0-48.0); HEMOGLOBIN 9.2 g/dL (12-16); IMMATURE GRANULOCYTES 0.8 % (0-5); LYMPHOCYTES 8.4 % (15-50); MCH 27.7 pg (26.0-34.0); MCHC 31.8 g/dL (31.0-37.0); MEAN PLATELET VOLUME 9.3 fL (7.4-10.4); MONOCYTES 14.9 % (2-11); NEUTROPHILS 74.7 % (40-80); PLATELET COUNT 489 10x3/uL (130-400); RBC 3.32 10x6/uL (4.00-5.40); RDW 14.3 % (11.5-14.5); WBC 11.8 10x3/uL (4.8-10.8)
--- NOTE | 2018-06-10 08:05 | NUR ---
CASH MAT TO BED PER DONY STRADDLE TRUCK OPERATOR.
--- NOTE | 2018-06-10 08:15 | NUR ---
ASSESSMENT PER FLOW SHEET. PT IS WITHOUT DISTRESS.NPO FOR PORT PLACEMENT TODAY.CALL LIGHT IN REACH
[2018-06-10 08:51] VITALS: BP 119/66
[2018-06-10 09:33] LABS: ALBUMIN 2.5 g/dL (3.4-5.0); ALKALINE PHOSPHATASE 106 U/L (46-116); ALT (SGPT) 26 U/L (10-68); BILIRUBIN - TOTAL 0.27 mg/dL (0.2-1.3); CALCIUM 9.1 mg/dL (8.5-10.1); CARBON DIOXIDE 39.3 mmol/L (21.0-32.0); CHLORIDE - SERUM 89 mmol/L (98-107); CREATININE - SERUM 0.7 mg/dL (0.6-1.3); GLUCOSE 103 mg/dL (74-106); PROTEIN - SERUM 6.7 g/dL (6.4-8.2); SODIUM 134 mmol/L (136-145); eGFR NON AFRICAN AMERICAN 87 mL/min (90-120)
[2018-06-10 09:39] LABS: CALC OSMOLALITY 267 mosm/kg (275-300); POTASSIUM - SERUM 3.1 mmol/L (3.5-5.1); UREA NITROGEN 12 mg/dL (7-18)
--- NOTE | 2018-06-10 13:45 | NUR ---
TO OR VIA BED.
--- NOTE | 2018-06-10 16:32 | NUR ---
BACK FROM OR VIA BED. PT IS WITHOUT DISTRESS.DRESSING LEFT CHEST CDI. FAMILY TO VISIT.
--- NOTE | 2018-06-10 18:17 | NUR ---
ATE MOST OF DINNER TRAY.SHE IS WITHOUT DISTRESS.CONT PLAN OF CARE
--- NOTE | 2018-06-10 19:23 | NUR ---
RECEIVED REPORT, ASSUMED CARE, DENIES NEEDS, AT BEDSIDE, BREATHING EVEN UNLABORED, CALL LIGHT IN REACH, BED LOWEST POSITION, WILL CONTINUE POC
[2018-06-10 20:00] VITALS: BP 125/45
[2018-06-11] VITALS: BP 94/46
[2018-06-11 04:00] VITALS: BP 122/43
--- NOTE | 2018-06-11 05:58 | NUR ---
A/OX4. RESP EVEN AND UNLABORED. HIGHFLOW O2 AT 3L. DENIES NEEDS AT THIS TIME. WILL CONTINUE POC.
--- NOTE | 2018-06-11 07:00 | NUR ---
REPORT RECIEVED ASSUMED CARE. PATIENT IN BED WITH IV INTADT. NO COMPLAINTS OR SIGNS OF DISTRESS. CALL LIGHT WITHIN REACH.
[2018-06-11 07:45] LABS: BASOPHILS 0.9 % (0-2); EOSINOPHILS 2.5 % (0-7); HEMATOCRIT 26.1 % (36.0-48.0); HEMOGLOBIN 8.3 g/dL (12-16); IMMATURE GRANULOCYTES 4.3 % (0-5); LYMPHOCYTES 14.9 % (15-50); MCH 28.1 pg (26.0-34.0); MCHC 31.8 g/dL (31.0-37.0); MCV 88.5 fL (80.0-100.0); MEAN PLATELET VOLUME 9.5 fL (7.4-10.4); MONOCYTES 23.3 % (2-11); NEUTROPHILS 54.1 % (40-80); PLATELET COUNT 527 10x3/uL (130-400); RBC 2.95 10x6/uL (4.00-5.40); RDW 14.4 % (11.5-14.5); WBC 9.1 10x3/uL (4.8-10.8)
[2018-06-11 08:16] LABS: ALBUMIN 2.1 g/dL (3.4-5.0); ANION GAP 9.7 mmol/L (8-16); BILIRUBIN - TOTAL 0.25 mg/dL (0.2-1.3); CALCIUM 8.4 mg/dL (8.5-10.1); CARBON DIOXIDE 37.2 mmol/L (21.0-32.0); CREATININE - SERUM 0.8 mg/dL (0.6-1.3); PROTEIN - SERUM 5.8 g/dL (6.4-8.2)
[2018-06-11 08:25] LABS: POTASSIUM - SERUM 2.9 mmol/L (3.5-5.1)
[2018-06-11 09:41] VITALS: BP 122/63
[2018-06-11 12:16] VITALS: BP 126/69
[2018-06-11 14:08] LABS: MAGNESIUM - SERUM 1.4 mg/dL (1.8-2.4); PHOSPHOROUS 2.3 mg/dL (2.5-4.9)
[2018-06-11 14:09] LABS: INR 1.04 (0.85-1.17); PROTIME 13.1 SECONDS (11.6-15.0)
[2018-06-11 17:32] VITALS: BP 122/69
--- NOTE | 2018-06-11 18:45 | NUR ---
PATIENT IN BED WITH IV INTACT. NO COMPLAINTS OR SIGNS OF DISTRESS. CALL LIGHT WITHIN REACH.
[2018-06-11 20:00] VITALS: BP 138/67
[2018-06-12] VITALS: BP 93/45
--- NOTE | 2018-06-12 01:47 | NUR ---
RN NOTE: PT RESTING IN SUPINE POSITION WITH EYES CLOSED. NPO STATUS IN PLACE SINCE MIDNIGHT IN PREPARATION FOR AM PROCEDURE. LEFT PORT ACCESSED AND SALINE LOCKED. SCD'S IN PLACE ON BLE. WILL CONTINUE TO MONITOR FOR NEEDS.
[2018-06-12 03:51] LABS: BASOPHILS 0.7 % (0-2); EOSINOPHILS 3.1 % (0-7); HEMOGLOBIN 9.5 g/dL (12-16); IMMATURE GRANULOCYTES 4.6 % (0-5); MCH 28.2 pg (26.0-34.0); MCHC 31.7 g/dL (31.0-37.0); MEAN PLATELET VOLUME 9.4 fL (7.4-10.4); MONOCYTES 17.7 % (2-11); NEUTROPHILS 60.9 % (40-80); PLATELET COUNT 505 10x3/uL (130-400); RBC 3.37 10x6/uL (4.00-5.40); RDW 14.6 % (11.5-14.5); WBC 10.7 10x3/uL (4.8-10.8)
[2018-06-12 04:00] VITALS: BP 99/51
[2018-06-12 04:13] LABS: ALBUMIN 2.3 g/dL (3.4-5.0); ANION GAP 8.8 mmol/L (8-16); BILIRUBIN - TOTAL 0.17 mg/dL (0.2-1.3); CALCIUM 8.6 mg/dL (8.5-10.1); CARBON DIOXIDE 36.9 mmol/L (21.0-32.0); CREATININE - SERUM 0.9 mg/dL (0.6-1.3); POTASSIUM - SERUM 3.7 mmol/L (3.5-5.1); PROTEIN - SERUM 6.1 g/dL (6.4-8.2); VANCOMYCIN - TROUGH 20.1 ug/mL (10.0-20.0)
--- NOTE | 2018-06-12 09:07 | MORECARE ---
CASE MANAGEMENT DISCHARGE SUMMARY PATIENT: JORGE GARCIA UNIT: [id number] ADM DATE: 06/08/18 AGE: 73 : 45 SEX: F ROOM/BED: D.2217 AUTHOR: SHANTANU LAWLER PHYSICIAN: REFERRING PHYSICIAN: ANGY MOTT MD DATE OF SERVICE: 06/12/18 Discharge Plan Patient Name: JORGE GARCIA [facility] [facility] 1945 Planned Disposition: Home with Home Health Anticipated Discharge Date: 06/15/18 Discharge Date: Expected LOS: 7 Initial Reviewer: [email or web address] Initial Review Date: 06/12/2018 Generated: 06/12/18 10:07 am DCPIA - Discharge Planning Initial Assessment Updated by [email or web address]: Kathrine Selby on 06/12/18 9:03 am * Is the patient Alert and Oriented? Yes * How many steps to enter\exit or inside your home? * PCP DR. MONTE * Pharmacy [facility] IN [facility] * Preadmission Environment Home Alone * ADLs Independent * Equipment Nebulizer Oxygen * List name and contact numbers for known caregivers / representatives who currently or will assist patient after discharge: LUCRETIA CUELLO (DAUGHTER) [phone] PADMAJA GARCIA (SON) [phone] * Verbal permission to speak to the caregivers and representatives has been obtained from the patient. Yes * Community resources currently utilized None * Additional services required to return to the preadmission environment? Yes * Can the patient safely return to the preadmission environment? Yes * Has this patient been hospitalized within the prior 30 days at any hospital? Yes Patient Name: JORGE GARCIA Page [phone] at 0907 All edits/amendments must be made on the electronic document DICTATION DATE: 06/12/18905 INSTRUCTIONAL TECHNOLOGY SPECIALIST: NISSA 06/12/18905 RPT#: [id number] DC DATE: STATUS: ADM IN [facility] [address] [place] [address] END OF REPORT
--- NOTE | 2018-06-12 09:13 | MORECARE ---
CASE MANAGEMENT DISCHARGE SUMMARY PATIENT: JORGE GARCIA UNIT: [id number] ADM DATE: 06/08/18 AGE: 73 : 45 SEX: F ROOM/BED: D.2217 AUTHOR: SHANTANU LAWLER PHYSICIAN: REFERRING PHYSICIAN: ANGY MOTT MD DATE OF SERVICE: 06/12/18 Discharge Plan Patient Name: JORGE GARCAI Facility: [facility]:[place] : 1945 Planned Disposition: Home with Home Health Anticipated Discharge Date: 06/15/18 Discharge Date: Expected LOS: 7 Initial Reviewer: [email or web address] Initial Review Date: 06/12/2018 Generated: 06/12/18 10:13 am Comments DCP- Discharge Planning Updated by [email or web address]: Kathrine Selby on 06/12/18 8:[address] Patient Name: JORGE GARCIA Admission Status: ER Accout number: [id number] Admission Date: 06-08-2018 : 1945 Admission Diagnosis:PNEUMONIA, UNSPECIFIED ORGANISM Attending: ANGY MOTT Current LOS: 4 Anticipated DC Date: 06-15-2018 Planned Disposition: Home with Home Health Primary Insurance: [employer] ADV Discharge Planning Comments: CM MET WITH PATIENT REGARDING D/C NEEDS AND PLANS. PATIENT STATED SHE LIVES NEXT DOOR TO HER DAUGHTER (LUCRETIA) AND SHE OR HER SON (PADMAJA) WILL DRIVE HER HOME AT DISCHARGE. PATIENT STATED THERE ARE ABOUT 7 STEPS TO ENTER AND IN HER HOME COMBINED. PATIENTS PCP IS DR. MONTE AND USES [facility] [place] FOR HER PHARMACY. PATIENT STATED SHE IS INDEPENDENT WITH HER CARE AND HAS OXYGEN (LINCARE) AND A NEBULIZER AT HOME. PATIENT SIGNED THE RENATE FORM FOR HOME HEALTH WITH [facility] AND THEN [facility] HER 2ND CHOICE. CM WILL CONTINUE TO FOLLOW PATIENT WITH D/C NEEDS AND PLANS. PCP DR[facility] [place] LUCRETIA CUELLO (DAUGHTER) [phone] Bus And Sys Integration Senior Manager: Kathrine Selby DCPIA - Discharge Planning Initial Assessment Updated by [email or web address]: Kathrine Selby on 06/12/18 9:03 am * Is the patient Alert and Oriented? Yes * How many steps to enter\exit or inside your home? * PCP DR. MONTE * Pharmacy [facility] IN [facility] * Preadmission Environment Home Alone * ADLs Independent * Equipment Nebulizer Oxygen * List name and contact numbers for known caregivers / representatives who currently or will assist patient after discharge: LUCRETIA CUELLO (DAUGHTER) [phone] PADMAJA GARCIA (SON) [phone] * Verbal permission to speak to the caregivers and representatives has been obtained from the patient. Yes * Community resources currently utilized None * Additional services required to return to the preadmission environment? Yes * Can the patient safely return to the preadmission environment? Yes * Has this patient been hospitalized within the prior 30 days at any hospital? Yes Last DP export: 06/12/18 8:07 Patient Name: JORGE GARCIA Page 13950 at 0913 All edits/amendments must be made on the electronic document DICTATION DATE: 06/12/18912 WELLNESS PROGRAM COORDINATOR: NISSA 06/12/18912 RPT#: [id number] DC DATE: STATUS: ADM IN [facility] [address] [place] [address] END OF REPORT
[2018-06-12 09:24] VITALS: BP 101/55
--- NOTE | 2018-06-12 10:21 | NUR ---
PATIENT BACK FROM THORACENTESIS. SITTING UP IN BED WITH SATS IN LOW 90'S. IV INTACT. CALL [facility] WITHIN REACH. WILL CONTINUE TO MONITOR
[2018-06-12 13:06] VITALS: BP 107/51
[2018-06-12 17:18] VITALS: BP 102/62
--- NOTE | 2018-06-12 18:45 | NUR ---
PATIENT IN BED WITH IV INTACT. NO COMPLAINTS OR SIGNS OF DISTRESS. CALL [facility] WITHIN REACH.
--- NOTE | 2018-06-12 19:00 | NUR ---
REPORT RECEIVED AND CARE OF PT ASSUMED. PT LYING IN HIGH VALE'S POSITION WATCHING TV. IV IN RIGHT FA PATENT WITH NS INFUSNG AT 10ML / HR AND VANC INFUSING AT THIS TIME. 02 IN USE VIA HIGH FLOW NC AT 3L. WILL MONITOR FOR NEEDS.
--- NOTE | 2018-06-12 19:56 | NUR ---
GAVE NORCO PO PER PRN ORDER, PER REQUEST FOR SEVERE BACK PAIN. WILL MONITOR FOR EFFECTIVENESS.
[2018-06-12 21:02] VITALS: BP 107/49
--- NOTE | 2018-06-12 21:55 | NUR ---
HS MEDICATIONS GIVEN. WILL CONTINUE TO MONITOR FOR NEEDS.
--- NOTE | 2018-06-12 23:15 | NUR ---
PT HAVING DRY HEAVES. GAVE ZOFRAN IVP PER PRN ORDER AND LEMON KWINHAGAK SODA. WILL CONTINUE TO MONITOR FOR NEEDS.
[2018-06-13] VITALS (8 sets, daily range): BP systolic 88–131; BP diastolic 45–63
[2018-06-13 06:42] LABS: BASOPHILS 0.6 % (0-2); EOSINOPHILS 3.3 % (0-7); HEMATOCRIT 27.8 % (36.0-48.0); HEMOGLOBIN 8.7 g/dL (12-16); IMMATURE GRANULOCYTES 4.7 % (0-5); LYMPHOCYTES 9.9 % (15-50); MCH 27.8 pg (26.0-34.0); MCHC 31.3 g/dL (31.0-37.0); MCV 88.8 fL (80.0-100.0); MEAN PLATELET VOLUME 9.6 fL (7.4-10.4); NEUTROPHILS 70.5 % (40-80); PLATELET COUNT 485 10x3/uL (130-400); RBC 3.13 10x6/uL (4.00-5.40); RDW 14.6 % (11.5-14.5)
[2018-06-13 06:43] LABS: WBC 14.9 10x3/uL (4.8-10.8)
[2018-06-13 06:58] LABS: ALBUMIN 2.1 g/dL (3.4-5.0); ANION GAP 9.7 mmol/L (8-16); BILIRUBIN - TOTAL 0.25 mg/dL (0.2-1.3); CALCIUM 8.2 mg/dL (8.5-10.1); CARBON DIOXIDE 34.3 mmol/L (21.0-32.0); CREATININE - SERUM 0.8 mg/dL (0.6-1.3); PROTEIN - SERUM 5.8 g/dL (6.4-8.2)
--- NOTE | 2018-06-13 17:55 | OP ---
PATIENT NAME: JORGE GARCIA MEDICAL RECORD: [id number] :45 LOCATION:D.MS Sommers2217 ADMISSION DATE:06/08/18 SURGEON: CAROL CHAVEZ MD DATE OF OPERATION: 06/10/2018 PREOPERATIVE DIAGNOSES: 1. Small cell lung cancer. 2. Hypertension. 3. Depression. 4. Chronic low back pain. POSTOPERATIVE DIAGNOSES: 1. Small cell lung cancer. 2. Hypertension. 3. Depression. 4. Chronic low back pain. PROCEDURES: 1. Left subclavian vein PowerPort placement. 2. Fluoroscopic interpretation. SURGEON: Carol Chavez MD REPORT OF PROCEDURE: The patient's left chest was prepped and draped in sterile fashion. A 10 mL of 1% lidocaine with epinephrine was infused into the surrounding tissues. A needle was used to cannulate the left subclavian vein and a guidewire was advanced with ease. Fluoro was used to note that the wire was in good position in the venous system. A skin incision was made on the left superolateral chest and a subcutaneous pouch was made with the pectoral fascia. The catheter was tunneled between this pouch and the wire exit site. The port was then sutured to the fascia using interrupted 3-0 Prolenes times 2. The catheter was cut with a beveled tip at 22 cm. The dilator trocar device was then placed over the wire and the wire and dilator were removed. The catheter tip was advanced through the trocar and the trocar was then removed. The catheter was noted to be resting in good position at right atrial and superior vena caval junction. The catheter aspirated nonpulsatile dark blood and flushed easily with heparinized saline. The subcutaneous tissues were reapproximated with interrupted 3-0 Vicryl and the skin was closed with running subcutaneous 5-0 Monocryl. We accessed the port and flushed it one last time and then a dressing was applied. COMPLICATIONS: None. CONDITION: Stable. ANESTHESIA: Local with TIVA. BLOOD LOSS: Minimal. TRANSINT:[id number] Voice Confirmation ID: [id number] DOCUMENT ID: [id number] OPERATIVE REPORT [id number] JORGE GARCIA CAROL CHAVEZ MD at 5297 CC: [id number] DICTATION DATE: 06/10/18 6852 BUTADIENE CONVERTER OPERATOR: 06/10/18 2326 ADM IN [facility] [address] [place] [id number]
--- NOTE | 2018-06-13 20:00 | NUR ---
PT SITTING UP IN BED, NO SIGNS OF DISTRESS. ALERT AND ORIENTED. STATES PAIN 7/10 IN BACK. GAVE NORCO ORDERED. NO OTHER COMPLAINTS OR NEEDS AT THIS TIME. CL IN REACH, WILL CONTINUE TO MONITOR
[2018-06-14] VITALS (7 sets, daily range): BP systolic 97–120; BP diastolic 50–60
[2018-06-14 06:13] LABS: BASOPHILS 0.4 % (0-2); EOSINOPHILS 4.1 % (0-7); HEMATOCRIT 29.3 % (36.0-48.0); HEMOGLOBIN 9.1 g/dL (12-16); IMMATURE GRANULOCYTES 4.3 % (0-5); LYMPHOCYTES 9.3 % (15-50); MCH 27.8 pg (26.0-34.0); MCHC 31.1 g/dL (31.0-37.0); MCV 89.6 fL (80.0-100.0); MEAN PLATELET VOLUME 9.1 fL (7.4-10.4); MONOCYTES 8.8 % (2-11); NEUTROPHILS 73.1 % (40-80); PLATELET COUNT 454 10x3/uL (130-400); RBC 3.27 10x6/uL (4.00-5.40); RDW 14.8 % (11.5-14.5)
[2018-06-14 06:25] LABS: CALCIUM 8.5 mg/dL (8.5-10.1); CARBON DIOXIDE 35.7 mmol/L (21.0-32.0); CREATININE - SERUM 0.9 mg/dL (0.6-1.3); POTASSIUM - SERUM 3.7 mmol/L (3.5-5.1)
[2018-06-14 09:08] LABS: MACROPHAGES BF 8 %; MESOTHELIALS BF 2 %; NEUT - BF 2 %
[2018-06-14 11:34] LABS: APPEARANCE CLEAR (CLEAR); BILIRUBIN NEGATIVE (NEGATIVE); COLOR YELLOW (YELLOW); GLUCOSE NEGATIVE (NEGATIVE); KETONE NEGATIVE (NEGATIVE); NITRITE NEGATIVE (NEGATIVE); PROTEIN NEGATIVE (NEGATIVE); SPECIFIC GRAVITY 1.015 (1.005-1.020); UROBILINOGEN NORMAL (NORMAL)
[2018-06-14 11:35] LABS: EPITHELIAL CELLS 0-5 /hpf (0-5); RED CELLS - URINE OCC /hpf (0-5); WHITE CELLS - URINE NSEEN /hpf (0-5)
--- NOTE | 2018-06-14 17:14 | NUR ---
PATIENT VANC HELD THIS DOSE FOR VANC TROUGH 26 AT THIS TIME. NOTIFIED PHARMACY. STATED THEY WOULD REDOSE MEDS.
[2018-06-15 04:00] VITALS: BP 115/52
[2018-06-15 05:56] LABS: BASOPHILS 0.4 % (0-2); EOSINOPHILS 3.4 % (0-7); HEMATOCRIT 28.1 % (36.0-48.0); HEMOGLOBIN 8.6 g/dL (12-16); IMMATURE GRANULOCYTES 3.4 % (0-5); LYMPHOCYTES 10.4 % (15-50); MCH 27.7 pg (26.0-34.0); MCHC 30.6 g/dL (31.0-37.0); MCV 90.4 fL (80.0-100.0); MEAN PLATELET VOLUME 9.3 fL (7.4-10.4); MONOCYTES 9.9 % (2-11); NEUTROPHILS 72.5 % (40-80); PLATELET COUNT 433 10x3/uL (130-400); RBC 3.11 10x6/uL (4.00-5.40); WBC 14.2 10x3/uL (4.8-10.8)
[2018-06-15 06:40] LABS: CALCIUM 8.4 mg/dL (8.5-10.1); CARBON DIOXIDE 36.3 mmol/L (21.0-32.0); CREATININE - SERUM 0.9 mg/dL (0.6-1.3); POTASSIUM - SERUM 3.3 mmol/L (3.5-5.1)
[2018-06-15 08:39] VITALS: BP 100/47
--- NOTE | 2018-06-15 09:42 | NUR ---
ASSESSMENT PER FLOW SHEET. PT IS WITHOUT DISTRESS.CALL LIGHT IN REACH
--- NOTE | 2018-06-15 14:19 | NUR ---
RESTING,WITHOUT SIGNS OF DISTRESS
--- NOTE | 2018-06-15 14:41 | NUR ---
NUTRITION F/U CHART REVIEWED, PT VISIT. TOLERATING REG DIET WITH 50 TO 75% INTAKE RECENT MEALS. PT REPORTS GOOD PO INTAKE/APPETITE. WILL CONTINUE TO HONOR FOOD PREFERENCES, MONITOR INTAKE. RD FOLLOWING
[2018-06-15 16:41] VITALS: BP 110/63
--- NOTE | 2018-06-15 18:50 | NUR ---
REMAINS WITHOUT CHANGE FROM INITIAL SHIFT ASSESSMENT. CONT PLAN OF CARE
[2018-06-15 20:00] VITALS: BP 123/64
--- NOTE | 2018-06-15 20:00 | NUR ---
AWAKE,ALERT.UP AD AVINASH IN ROOM. NO DISTRESS NOTED. NO COMPLAINTS VOICED. CL IN REACH
[2018-06-16] VITALS: BP 105/49
--- NOTE | 2018-06-16 03:20 | NUR ---
EYES CLOSED RESPIRATIONS WITH EASE AND UNLABORED.
[2018-06-16 05:38] VITALS: BP 110/50
[2018-06-16 06:22] LABS: BASOPHILS 0.5 % (0-2); EOSINOPHILS 2.4 % (0-7); HEMATOCRIT 29.4 % (36.0-48.0); HEMOGLOBIN 9.2 g/dL (12-16); IMMATURE GRANULOCYTES 2.2 % (0-5); LYMPHOCYTES 10.3 % (15-50); MCH 28.3 pg (26.0-34.0); MCHC 31.3 g/dL (31.0-37.0); MCV 90.5 fL (80.0-100.0); MEAN PLATELET VOLUME 9.3 fL (7.4-10.4); MONOCYTES 9.7 % (2-11); NEUTROPHILS 74.9 % (40-80); PLATELET COUNT 434 10x3/uL (130-400); RBC 3.25 10x6/uL (4.00-5.40); RDW 15.1 % (11.5-14.5); WBC 17.1 10x3/uL (4.8-10.8)
[2018-06-16 06:28] LABS: CALC OSMOLALITY 273 mosm/kg (275-300); CALCIUM 8.5 mg/dL (8.5-10.1); CARBON DIOXIDE 33.7 mmol/L (21.0-32.0); CHLORIDE - SERUM 98 mmol/L (98-107); CREATININE - SERUM 0.7 mg/dL (0.6-1.3); GLUCOSE 86 mg/dL (74-106); POTASSIUM - SERUM 4.8 mmol/L (3.5-5.1); SODIUM 137 mmol/L (136-145); UREA NITROGEN 16 mg/dL (7-18); eGFR NON AFRICAN AMERICAN 87 mL/min (90-120)
--- NOTE | 2018-06-16 08:00 | NUR ---
ASSESSMENT PER FLOW SHEET. PT IS WITHOUT DISTRESS.CALL LIGHT IN REACH
[2018-06-16 08:45] VITALS: BP 117/60
[2018-06-16 12:45] VITALS: BP 111/58
[2018-06-16 16:37] VITALS: BP 116/68
[2018-06-16 18:08] LABS: ACID FAST SMEAR Negative (()); AFB SPECIMEN PROCESSING Not Indicated (())
[2018-06-16 20:00] VITALS: BP 138/67
--- NOTE | 2018-06-16 20:00 | NUR ---
ASSESSMENT PER FLOWSHEET. IV PATENT LEFT INFUSAPORT OF NS AT 10CC'S/HR. SR UP X2 CALL LIGHT WITHIN REACH. TELM. SHOWS SR.
--- NOTE | 2018-06-16 21:00 | NUR ---
MEDS GIVEN PER MAR.
--- NOTE | 2018-06-17 | NUR ---
EYES CLOSED RESPIRATIONS WITH EASE AND UNLABORED.
--- NOTE | 2018-06-17 03:51 | NUR ---
RESTING QUIETLY DENIES NEEDS.
[2018-06-17 04:00] VITALS: BP 119/83
[2018-06-17 05:45] LABS: BASOPHILS 0.3 % (0-2); EOSINOPHILS 1.6 % (0-7); HEMATOCRIT 27.9 % (36.0-48.0); HEMOGLOBIN 8.7 g/dL (12-16); IMMATURE GRANULOCYTES 1.7 % (0-5); LYMPHOCYTES 10.2 % (15-50); MCH 28.2 pg (26.0-34.0); MCHC 31.2 g/dL (31.0-37.0); MCV 90.3 fL (80.0-100.0); MEAN PLATELET VOLUME 8.9 fL (7.4-10.4); MONOCYTES 8.8 % (2-11); NEUTROPHILS 77.4 % (40-80); RBC 3.09 10x6/uL (4.00-5.40); RDW 15.1 % (11.5-14.5); WBC 15.8 10x3/uL (4.8-10.8)
[2018-06-17 06:26] LABS: ANION GAP 8.8 mmol/L (8-16); CALCIUM 8.8 mg/dL (8.5-10.1); CREATININE - SERUM 0.8 mg/dL (0.6-1.3); POTASSIUM - SERUM 4.8 mmol/L (3.5-5.1)
[2018-06-17 06:32] LABS: PLATELET COUNT 318 10x3/uL (130-400)
[2018-06-17 08:45] VITALS: BP 102/52
[2018-06-17 12:45] VITALS: BP 123/65
[2018-06-17 13:16] LABS: FUNGUS STAIN Final report (())
[2018-06-17 16:48] VITALS: BP 114/46
--- NOTE | 2018-06-17 19:57 | NUR ---
PATIENT SITTING UP IN BED WITH INFUSAPORT INTACT. DR. CHAVEZ STATED THAT CHEMO WILL BE STARTED AFTER PATIENT FINISHES THE ROUND OF ANTIBIOTICS. PATIENT VERBALIZED UNDEDRSTANDING. NO COMPLAINTS OR SIGNS OF DISTRESS. CALL LIGHT WITHIN REACH.
[2018-06-17 20:28] VITALS: BP 121/56
[2018-06-18 00:46] VITALS: BP 141/74
--- NOTE | 2018-06-18 03:23 | NUR ---
PT LYING IN BED RESTING, NO SIGNS OF DISTRESS. DENIES NEEDS. CL IN REACH, WILL CONTINUE TO MONITOR
[2018-06-18 05:18] LABS: BASOPHILS 0.5 % (0-2); EOSINOPHILS 1.3 % (0-7); HEMATOCRIT 28.9 % (36.0-48.0); HEMOGLOBIN 8.8 g/dL (12-16); IMMATURE GRANULOCYTES 1.5 % (0-5); LYMPHOCYTES 9.6 % (15-50); MCH 27.7 pg (26.0-34.0); MCHC 30.4 g/dL (31.0-37.0); MCV 90.9 fL (80.0-100.0); MEAN PLATELET VOLUME 9.3 fL (7.4-10.4); MONOCYTES 8.4 % (2-11); NEUTROPHILS 78.7 % (40-80); PLATELET COUNT 374 10x3/uL (130-400); RBC 3.18 10x6/uL (4.00-5.40); RDW 15.1 % (11.5-14.5)
[2018-06-18 05:24] VITALS: BP 118/65
[2018-06-18 05:33] LABS: CALC OSMOLALITY 270 mosm/kg (275-300); CALCIUM 8.8 mg/dL (8.5-10.1); CARBON DIOXIDE 34.5 mmol/L (21.0-32.0); CHLORIDE - SERUM 98 mmol/L (98-107); CREATININE - SERUM 0.7 mg/dL (0.6-1.3); GLUCOSE 99 mg/dL (74-106); POTASSIUM - SERUM 4.5 mmol/L (3.5-5.1); SODIUM 135 mmol/L (136-145); UREA NITROGEN 16 mg/dL (7-18); eGFR NON AFRICAN AMERICAN 87 mL/min (90-120)
[2018-06-18 09:53] VITALS: BP 128/67
--- NOTE | 2018-06-18 12:20 | NUR ---
ALERT AND ORIENTED X 3 NORCO AND DILAUDID GIVEN FOR BACK PAIN AND EFFECTIVE.ULTRASOUND REVELAED DVT TO LUE. NO NEEDLE STICK OR BLOOD PRESSURES TO RUE. INSPIRATORY WHEEZE NOTED X4 POSTERIOR. LOVENOX GIVEN ANTICOGULANT THERAPY.ENCOURAGED TO USE CALL LIGHT FOR ASSIST
--- NOTE | 2018-06-18 19:15 | NUR ---
RECEIVED CARE FROM DAY NURSE. SITTING UP IN BED WATCHING TV. CALL LIGHT AT SIDE. IV INFUSING TO LEFT IP PER ORDER. NO NEEDS VOICED AT THIS TIME.
--- NOTE | 2018-06-18 19:45 | NUR ---
REQUEST TO NO LONGER HAVE TELEMETRY. PT STATES SHE ISN'T HERE FOR A HEART PROBLEM. RETURNED TO LOOSE HAND PACKER.
[2018-06-18 20:42] VITALS: BP 127/61
--- NOTE | 2018-06-19 04:30 | NUR ---
RESTING QUITELY IN BED RESP UNLABORED IV INFUSING WITHOUT DIFFICULTY NO APPARENT DISTRESS
[2018-06-19 04:32] VITALS: BP 132/65
[2018-06-19 06:42] LABS: BASOPHILS 0.7 % (0-2); EOSINOPHILS 1.3 % (0-7); HEMATOCRIT 27.7 % (36.0-48.0); HEMOGLOBIN 8.4 g/dL (12-16); IMMATURE GRANULOCYTES 1.2 % (0-5); LYMPHOCYTES 14.4 % (15-50); MCH 27.8 pg (26.0-34.0); MCHC 30.3 g/dL (31.0-37.0); MCV 91.7 fL (80.0-100.0); MEAN PLATELET VOLUME 9.3 fL (7.4-10.4); MONOCYTES 10.6 % (2-11); NEUTROPHILS 71.8 % (40-80); PLATELET COUNT 356 10x3/uL (130-400); RBC 3.02 10x6/uL (4.00-5.40); RDW 15.6 % (11.5-14.5); WBC 11.3 10x3/uL (4.8-10.8)
[2018-06-19 06:58] LABS: CALC OSMOLALITY 270 mosm/kg (275-300); CALCIUM 8.8 mg/dL (8.5-10.1); CARBON DIOXIDE 32.8 mmol/L (21.0-32.0); CHLORIDE - SERUM 98 mmol/L (98-107); CREATININE - SERUM 0.7 mg/dL (0.6-1.3); GLUCOSE 97 mg/dL (74-106); POTASSIUM - SERUM 4.4 mmol/L (3.5-5.1); SODIUM 135 mmol/L (136-145); UREA NITROGEN 15 mg/dL (7-18); eGFR NON AFRICAN AMERICAN 87 mL/min (90-120)
[2018-06-19 09:49] VITALS: BP 123/49
[2018-06-19 11:00] VITALS: BP 131/42
--- NOTE | 2018-06-19 11:00 | NUR ---
PT SITTING IN BED. RESPIRATIONS ARE EVEN AND PT IS TACHYPNIC WITH RESPIRATIONS AT 22. PT REPORTS DYSPNEA WITHOUT PAIN. PT STATES THAT IT WAS DIFFICULT TO CATCH BREATH. FAMILY AT BEDSIDE AND FAMILY MEMBER REPORTING THAT PT IS "SWOLLEN". SLIGHT EDEMA NOTED TO LEFT HAND WITH REDNESS. PT DENIES CHEST PAIN. PRODUCT ASSEMBLER AT BEDSIDE. PT REPORTS THAT SHE IS HAVING LESS DYSPNEA. FREQUENT VITAL SIGNS STARTED. SEE FLOWSHEET FOR CURRENT VITALS.
[2018-06-19 16:10] VITALS: BP 107/52
--- NOTE | 2018-06-19 16:36 | NUR ---
PT SITTING IN BED WITH EYES OPEN. RESPIRATIONS ARE EVEN AND UNLABORED. PT DENIES SOB. PT REPORTS PAIN 5/10. WILL ADDRESS. SEE EMAR. BED IS IN LOWEST POSITION. CALL LIGHT AND BEDSIDE TABLE ARE WITHIN REACH. WILL CONT TO MONITOR. PT DENIES FURTHER NEEDS.
[2018-06-19 21:13] VITALS: BP 137/88
[2018-06-20] VITALS: BP 135/76
[2018-06-20 03:00] VITALS: BP 140/57
--- NOTE | 2018-06-20 03:30 | NUR ---
RESTING IN BED RESP UNLABORED NO APPARENT DISTRESS CALL LIGHT IN REACH
[2018-06-20 06:34] LABS: CALC OSMOLALITY 272 mosm/kg (275-300); CALCIUM 8.9 mg/dL (8.5-10.1); CARBON DIOXIDE 32.2 mmol/L (21.0-32.0); CHLORIDE - SERUM 98 mmol/L (98-107); CREATININE - SERUM 0.7 mg/dL (0.6-1.3); GLUCOSE 98 mg/dL (74-106); POTASSIUM - SERUM 4.4 mmol/L (3.5-5.1); SODIUM 136 mmol/L (136-145); UREA NITROGEN 15 mg/dL (7-18); eGFR NON AFRICAN AMERICAN 87 mL/min (90-120)
[2018-06-20 07:15] LABS: BASOPHILS 0.6 % (0-2); EOSINOPHILS 0.7 % (0-7); HEMATOCRIT 27.1 % (36.0-48.0); HEMOGLOBIN 8.3 g/dL (12-16); IMMATURE GRANULOCYTES 0.6 % (0-5); LYMPHOCYTES 13.8 % (15-50); MCH 27.9 pg (26.0-34.0); MCHC 30.6 g/dL (31.0-37.0); MCV 91.2 fL (80.0-100.0); MEAN PLATELET VOLUME 9.6 fL (7.4-10.4); MONOCYTES 10.8 % (2-11); NEUTROPHILS 73.5 % (40-80); PLATELET COUNT 400 10x3/uL (130-400); RBC 2.97 10x6/uL (4.00-5.40); RDW 15.3 % (11.5-14.5); WBC 10.2 10x3/uL (4.8-10.8)
[2018-06-20 08:06] VITALS: BP 140/66
[2018-06-20 12:40] VITALS: BP 119/70
[2018-06-20 16:05] VITALS: BP 127/68
--- NOTE | 2018-06-20 16:48 | NUR ---
CISPLATIN IV STARTED AT 370 CC/HR PER PORT , PORT WITH GOOD BLOOD RETURN VS TAKEN , HR 90 RESP 18 , 02 SAT 92% ON 4L/NC B/P 107/60 WILL CONTUNE TO MONITOR PT
--- NOTE | 2018-06-20 17:47 | NUR ---
CHEMO REMOVED PORT FLUSHE D WITH GOOD BLOOD RETURN, IV FLUIDS STARTED POST OP
[2018-06-20 19:00] VITALS: BP 122/65
--- NOTE | 2018-06-20 19:53 | NUR ---
RECIEVED UP IN BED WITH TV ON. ALERT AND ORIENTED X4. DENIES ANY NEEDS. WILL CONT. POC.
[2018-06-21] VITALS: BP 132/54
[2018-06-21 05:55] VITALS: BP 144/68
[2018-06-21 07:18] LABS: CALC OSMOLALITY 280 mosm/kg (275-300); CALCIUM 8.6 mg/dL (8.5-10.1); CARBON DIOXIDE 33.5 mmol/L (21.0-32.0); CHLORIDE - SERUM 101 mmol/L (98-107); CREATININE - SERUM 0.7 mg/dL (0.6-1.3); GLUCOSE 113 mg/dL (74-106); POTASSIUM - SERUM 4.5 mmol/L (3.5-5.1); SODIUM 139 mmol/L (136-145); UREA NITROGEN 18 mg/dL (7-18); eGFR NON AFRICAN AMERICAN 87 mL/min (90-120)
[2018-06-21 07:34] LABS: BASOPHILS 0.2 % (0-2); EOSINOPHILS 0 % (0-7); HEMATOCRIT 25.3 % (36.0-48.0); HEMOGLOBIN 7.7 g/dL (12-16); IMMATURE GRANULOCYTES 0.8 % (0-5); LYMPHOCYTES 9.9 % (15-50); MCH 27.8 pg (26.0-34.0); MCHC 30.4 g/dL (31.0-37.0); MCV 91.3 fL (80.0-100.0); MEAN PLATELET VOLUME 9.5 fL (7.4-10.4); MONOCYTES 7.8 % (2-11); NEUTROPHILS 81.3 % (40-80); PLATELET COUNT 405 10x3/uL (130-400); RBC 2.77 10x6/uL (4.00-5.40); RDW 15.3 % (11.5-14.5)
[2018-06-21 08:01] LABS: WBC 6.3 10x3/uL (4.8-10.8)
[2018-06-21 08:28] VITALS: BP 130/78
--- NOTE | 2018-06-21 08:32 | NUR ---
PT AAOX4 RESP EVEN AND NONLABORED, NO SIGNS OF DISTRESS NOTED, CL IN REACH WILL CONTINUE TO MONITOR
--- NOTE | 2018-06-21 11:02 | NUR ---
NUTRITION F/U CHART REVIEWED. PT STARTED CHEMO YESTERDAY. 25% INTAKE BREAKFAST THIS AM. WILL CONTINUE TO PROVIDE DIET, HONOR FOOD PREFERENCES. RD FOLLOWING
--- NOTE | 2018-06-21 11:15 | NUR ---
AWAKE AND ALRET. ORIENTED X3. NO C/O AT THIS TIME. DENIES NEEDS. NO C/O NAUSEA OR EMESIS AFTER CHEMO YESTERDAY.
[2018-06-21 12:48] VITALS: BP 125/77
[2018-06-21 15:41] VITALS: BP 125/77
--- NOTE | 2018-06-21 16:02 | NUR ---
CHEMO HANGED PER HOSPITAL PROTOCOL PT WITH PORT GOOD BLOOD RETURN VITAL SIGNS TAKEN BP 123/67, O2 91% ON 4L HIGH FLOW, HR 75, PT RESTING QUIETLY WITH EYES CLOSED
[2018-06-21 19:00] VITALS: BP 117/61
--- NOTE | 2018-06-21 20:00 | NUR ---
ASSESSMENT PER FLOWSHEET. C/O PAIN IN BACK PERCOCET TAB ONE PO GIVEN FOR PAIN CONTROL. IV PATENT LEFT INFUSAPORT OF BLOOD INFUSING. O2 AT 4L/M PER NC.
--- NOTE | 2018-06-21 21:00 | NUR ---
MEDS GIVEN PER MAR.
--- NOTE | 2018-06-22 | NUR ---
EYES CLOSED RESPIRATIONS WITH EAE AND UNLABORED.
[2018-06-22 01:26] VITALS: BP 114/57
--- NOTE | 2018-06-22 03:30 | NUR ---
C/O PAIN INLOWER BACK CHRONIC PAIN AND REQUESTING EXTRA DOSE OF SLEEPING MED ORDERED. PERCOCET 5 TAB ONE PO GIVEN FOR PAIN AND RESTORIL 15 MG PO GIVEN FOR SLEEP.
[2018-06-22 05:01] VITALS: BP 99/57
[2018-06-22 06:23] LABS: BASOPHILS 0 % (0-2); EOSINOPHILS 0 % (0-7); IMMATURE GRANULOCYTES 0.1 % (0-5); LYMPHOCYTES 8.4 % (15-50); MCH 28.4 pg (26.0-34.0); MCHC 30.7 g/dL (31.0-37.0); MCV 92.6 fL (80.0-100.0); MEAN PLATELET VOLUME 9.5 fL (7.4-10.4); MONOCYTES 4.1 % (2-11); NEUTROPHILS 87.4 % (40-80); PLATELET COUNT 422 10x3/uL (130-400); RDW 15.4 % (11.5-14.5); WBC 6.9 10x3/uL (4.8-10.8)
[2018-06-22 06:25] LABS: ANION GAP 9.9 mmol/L (8-16); CALCIUM 8.6 mg/dL (8.5-10.1); POTASSIUM - SERUM 4.9 mmol/L (3.5-5.1)
[2018-06-22 06:27] LABS: CREATININE - SERUM 0.9 mg/dL (0.6-1.3)
--- NOTE | 2018-06-22 06:45 | NUR ---
UNABLE TO GIVE PATIENT ROBAXIN AND PROTONIX MED PT SEDATED
[2018-06-22 06:49] LABS: HEMATOCRIT 32.3 % (36.0-48.0); HEMOGLOBIN 9.9 g/dL (12-16); RBC 3.49 10x6/uL (4.00-5.40)
[2018-06-22 08:35] VITALS: BP 130/74
[2018-06-22 12:00] VITALS: BP 121/65
--- NOTE | 2018-06-22 12:43 | NUR ---
PATIENT RESTING WITH EYES CLOSED, RESPIRATIONS NONLABORED, CL IN REACH
[2018-06-22 16:00] VITALS: BP 128/56
--- NOTE | 2018-06-22 16:44 | NUR ---
GOOD BLOOD RETURN FROM PORT, CHEMO HANGED PER HOSPITAL PROTOCOL,PT ANSWERS QUESTION NAME AND BIRTHDAY, VS TAKEN HR 91 RESP0 22 O2 SAT 91% ON 4L/NC HIGH LEVEL. B/P 127/90 , NO DISSTRESS NOTED AT THIS TIME, COLOR WNL,SKIN W/D
--- NOTE | 2018-06-22 17:00 | NUR ---
UPON CLEANING ROOM FOUND BLOOD SHEET VITAL SIGNS LYING ON FLOOR THIS BLOOD WAS STARTED YESTERDAY ON HI AT ABOUT 1820 BY RN HARRIET THE SHEET WAS LEFT IN ROOM FOR ACCORDION TUNER TO FINISH FILING OUT, THIS WAS NOT DONE, I PUT THE SHEET IN THE PT'S CHART
--- NOTE | 2018-06-22 20:00 | NUR ---
ASSESSMENT PER FLOWSHEET. ALERT/ORIENTED X3 IV PATENT LEFT INFUSAPORT SALINE LOCKED. O2 ON 4L/M PER HIGH FLOW. NO RESP. DISTRESS. UP AD AVINASH IN ROOM.
--- NOTE | 2018-06-22 20:24 | NUR ---
REQUESTING PAIN SHOT FOR CHRONIC BACK PAIN. STATES HAS BEEN ASKING FOR PAST 2 1/2 HOURS. DILAUDID 0.5MG IVP GIVEN FOR PAIN CONTROL.
--- NOTE | 2018-06-22 20:30 | NUR ---
ROUTINE HS MEDS GIVEN PER AUG.
[2018-06-22 21:37] VITALS: BP 118/55
--- NOTE | 2018-06-23 | NUR ---
EYS CLOSED RESPIRATIONS WITH EASE AND UNLABORED.
[2018-06-23 01:25] VITALS: BP 120/60
--- NOTE | 2018-06-23 03:39 | NUR ---
RESTING QUIETLY DENIES NEEDS.
[2018-06-23 04:50] VITALS: BP 122/58
[2018-06-23 07:03] LABS: ANION GAP 14.6 mmol/L (8-16); CALCIUM 8.7 mg/dL (8.5-10.1); CARBON DIOXIDE 28.7 mmol/L (21.0-32.0); CREATININE - SERUM 0.9 mg/dL (0.6-1.3); POTASSIUM - SERUM 5.3 mmol/L (3.5-5.1)
--- NOTE | 2018-06-23 07:15 | NUR ---
MORNING ASSESSMENT COMPLETE. SEE ASSESSMENT FLOWSHEET FOR FURTHER DETAILS. PT LYING IN BED AAO X3 TO PERSON, PLACE, AND TIME. L CHEST INFUSAPORT SL- SITE C/D/I; PATENT. HEART: S1 AND S2 HEARD AT AORTIC, PULMONIC, ERBS, TRICUSPID, AND MITRAL SITES- REG RHYTHM. BILAT RADIAL AND PEDAL PULSES PALP AND STRONG. LUNGS DIMINISHED IN SOUND- ON 4L HIGH FLOW O2. ABD: BS ACTIVE X4. DENIES NEEDS AT THIS TIME. BED IN LOWEST POSITION, SIDE RAILS UP X2, CL IN REACH.
[2018-06-23 07:41] LABS: HEMOGLOBIN 9.7 g/dL (12-16); LYMPHOCYTES 11.5 % (15-50); MCH 29.8 pg (26.0-34.0); MCHC 32.3 g/dL (31.0-37.0); NEUTROPHILS 87.1 % (40-80); RBC 3.26 10x6/uL (4.00-5.40); RDW 14.8 % (11.5-14.5)
[2018-06-23 07:42] LABS: PLATELET COUNT 252 10x3/uL (130-400); WBC 4.2 10x3/uL (4.8-10.8)
[2018-06-23 09:26] VITALS: BP 140/59
[2018-06-23 14:04] VITALS: BP 127/64
[2018-06-23 17:09] VITALS: BP 111/65
[2018-06-23 20:00] VITALS: BP 100/54
[2018-06-24] VITALS: BP 115/55
--- NOTE | 2018-06-24 04:01 | NUR ---
RUTHIE BLOOD FROM INFUSAPORT FOR AM LABS AND DELIVERED TO INSULATION FOREMAN. LINE FLUSHED WELL AFTER AND SALINE LOCKED.
--- NOTE | 2018-06-24 04:03 | NUR ---
PT REFUSED AM VITALS...CUSSED AND SWAT AT SENIOR ASSOCIATE.
[2018-06-24 05:34] LABS: ALBUMIN 2.6 g/dL (3.4-5.0); BASOPHILS 0 % (0-2); BILIRUBIN - TOTAL 0.44 mg/dL (0.2-1.3); CALCIUM 8.8 mg/dL (8.5-10.1); CARBON DIOXIDE 32.4 mmol/L (21.0-32.0); EOSINOPHILS 0.4 % (0-7); HEMATOCRIT 30.5 % (36.0-48.0); HEMOGLOBIN 9.6 g/dL (12-16); IMMATURE GRANULOCYTES 0.1 % (0-5); LYMPHOCYTES 10.8 % (15-50); MCH 28.7 pg (26.0-34.0); MCHC 31.5 g/dL (31.0-37.0); MCV 91.3 fL (80.0-100.0); MEAN PLATELET VOLUME 9.8 fL (7.4-10.4); MONOCYTES 3.4 % (2-11); NEUTROPHILS 85.3 % (40-80); PLATELET COUNT 387 10x3/uL (130-400); PROTEIN - SERUM 6.2 g/dL (6.4-8.2); RBC 3.34 10x6/uL (4.00-5.40); RDW 14.8 % (11.5-14.5); WBC 7.4 10x3/uL (4.8-10.8)
[2018-06-24 05:41] LABS: POTASSIUM - SERUM 4.4 mmol/L (3.5-5.1)
--- NOTE | 2018-06-24 07:15 | NUR ---
MORNING ASSESSMENT COMPLETE. SEE ASSESSMENT FLOWSHEET FOR FURTHER DETAILS. L INFUSAPORT SL. LUNG SOUNDS DIMINISHED IN ALL LUNG [place]. PT C/O BACK PAIN- WILL TREAT WITH PERCOCET. DENIES NEEDS AT THIS TIME.
[2018-06-24 08:28] VITALS: BP 133/53
[2018-06-24 12:58] VITALS: BP 121/71
--- NOTE | 2018-06-24 15:38 | MORECARE ---
CASE MANAGEMENT DISCHARGE SUMMARY PATIENT: JORGE GARCIA UNIT: [id number] ADM DATE: 06/08/18 AGE: 73 : 45 SEX: F ROOM/BED: D.2217 AUTHOR: BUCKYDOC PHYSICIAN: REFERRING PHYSICIAN: ANGY MOTT MD DATE OF SERVICE: 06/24/18 Discharge Plan Patient Name: JORGE GARCIA Facility: [facility]:[place] : 1945 Planned Disposition: Home with Home Health Anticipated Discharge Date: 06/15/18 Discharge Date: Expected LOS: 7 Initial Reviewer: [email or web address] Initial Review Date: 06/12/2018 Generated: 06/24/18 4:38 pm Comments DCP- Discharge Planning Updated by [email or web address]: Kathrine Selby on 06/12/18 8:[address] Patient Name: JORGE GACRIA Admission Status: ER Accout number: [id number] Admission Date: 06-08-2018 : 1945 Admission Diagnosis:PNEUMONIA, UNSPECIFIED ORGANISM Attending: ANGY MOTT Current LOS: 4 Anticipated DC Date: 06-15-2018 Planned Disposition: Home with Home Health Primary Insurance: [employer] MEDICARE ADV Discharge Planning Comments: CM MET WITH PATIENT REGARDING D/C NEEDS AND PLANS. PATIENT STATED SHE LIVES NEXT DOOR TO HER DAUGHTER (LUCRETIA) AND SHE OR HER SON (PADMAJA) WILL DRIVE HER HOME AT DISCHARGE. PATIENT STATED THERE ARE ABOUT 7 STEPS TO ENTER AND IN HER HOME COMBINED. PATIENTS PCP IS DR. MNOTE AND USES [facility] IN [place] FOR HER PHARMACY. PATIENT STATED SHE IS INDEPENDENT WITH HER CARE AND HAS OXYGEN (LINCARE) AND A NEBULIZER AT HOME. PATIENT SIGNED THE RENATE FORM FOR HOME HEALTH WITH [facility] AND THEN [facility] HER [facility] CHOICE. CM WILL CONTINUE TO FOLLOW PATIENT WITH D/C NEEDS AND PLANS. [facility] [place] LUCRETIA CUELLO (DAUGHTER) [phone] Inside Sales Engineer: Kathrine Selby DCPIA - Discharge Planning Initial Assessment Updated by [email or web address]: Kathrine Selby on 06/12/18 9:03 am * Is the patient Alert and Oriented? Yes * How many steps to enter\exit or inside your home? * PCP DR. MONTE * Pharmacy [facility] IN [facility] * Preadmission Environment Home Alone * ADLs Independent * Equipment Nebulizer Oxygen * List name and contact numbers for known caregivers / representatives who currently or will assist patient after discharge: LUCRETIA CUELLO (DAUGHTER) [phone] PADMAJA GARCIA (SON) [phone] * Verbal permission to speak to the caregivers and representatives has been obtained from the patient. Yes * Community resources currently utilized None * Additional services required to return to the preadmission environment? Yes * Can the patient safely return to the preadmission environment? Yes * Has this patient been hospitalized within the prior 30 days at any hospital? Yes External Providers External Provider: [email or web address] Next Contact Date: Service Request Date: Service Type: Resolution: Reviewer: Comments: Last DP export: 06/12/18 8:13 Patient Name: JORGE GARCIA Page 49613 at 1538 All edits/amendments must be made on the electronic document DICTATION DATE: 06/24/181537 THREAT MONITORING ANALYST: NISSA 06/24/18 1538 RPT#: [id number] DC DATE: STATUS: ADM IN [facility] [address] [place] [address] END OF REPORT
[2018-06-24 15:58] VITALS: BP 107/61
--- NOTE | 2018-06-24 19:15 | NUR ---
REPORT RECEIVED AND CARE OF PT ASSUMED. PT SITTING UP ON SIDE OF BED WATCHING TV. LEFT INFUSAPORT SALINE LOCKED. WILL MONITOR FOR NEEDS.
[2018-06-24 20:00] VITALS: BP 108/66
--- NOTE | 2018-06-24 20:40 | NUR ---
HS MEDICATIONS GIVEN TO INCLUDE PERCOCET PO PER REQUEST FOR PAIN. WILL MONITOR FOR EFFECTIVENESS. SIDE RAILS UP X2 FOR SAFETY.
[2018-06-25 04:00] VITALS: BP 141/67
[2018-06-25 06:46] LABS: BASOPHILS 0 % (0-2); EOSINOPHILS 3.9 % (0-7); HEMATOCRIT 28.2 % (36.0-48.0); HEMOGLOBIN 8.9 g/dL (12-16); IMMATURE GRANULOCYTES 0.3 % (0-5); LYMPHOCYTES 12.4 % (15-50); MCH 28.7 pg (26.0-34.0); MCHC 31.6 g/dL (31.0-37.0); MEAN PLATELET VOLUME 9.9 fL (7.4-10.4); NEUTROPHILS 82.4 % (40-80); PLATELET COUNT 315 10x3/uL (130-400); RDW 14.6 % (11.5-14.5); WBC 6.9 10x3/uL (4.8-10.8)
[2018-06-25 07:07] LABS: ALBUMIN 2.3 g/dL (3.4-5.0); BILIRUBIN - TOTAL 0.34 mg/dL (0.2-1.3); CALCIUM 8.4 mg/dL (8.5-10.1); CARBON DIOXIDE 35.6 mmol/L (21.0-32.0); CREATININE - SERUM 0.9 mg/dL (0.6-1.3); PROTEIN - SERUM 5.5 g/dL (6.4-8.2)
[2018-06-25 07:09] LABS: POTASSIUM - SERUM 3.6 mmol/L (3.5-5.1)
--- NOTE | 2018-06-25 07:30 | NUR ---
PATIENT IN BED WITH NO COMPLAINTS OR SIGNS OF DISTRESS. EYES CLOSED RESTING QUIETLY. CALL LIGHT WITHIN REACH.
--- NOTE | 2018-06-25 09:00 | NUR ---
PT ASLEEP IN BED THIS AM, AWOKEN EASILY TO VERBAL STIMULI. MOOD PLEASANT. PRODUCTIVE WET SOUNDING COUGH NOTED. UPPER LUNG LOBE WHEEZES NOTED WITH LOWER LOBES CLEAR TO AUSCULTATION. RESPIRATIONS EVEN AND UNLABORED, NO S/S OF DISTRESS NOTED. 4L O2 VIA HFNC NOTED. DENIES NEEDS AT THIS TIME. BED LOW AND LOCKED, SR UP X2, CL IN EASY REACH. WILL CONTINUE TO MONITOR THROUGHOUT THE DAY.
[2018-06-25 09:09] VITALS: BP 124/62
[2018-06-25 13:15] VITALS: BP 110/55
--- NOTE | 2018-06-25 19:15 | NUR ---
REPORT RECEIVED AND CARE OF PT ASSUMED. PT SITTING UP IN BED WATCHING TV. LEFT IP SALINE LOCKED. WILL MONITOR FOR NEEDS.
[2018-06-25 19:38] VITALS: BP 119/57
--- NOTE | 2018-06-25 21:54 | NUR ---
HS MEDICATIONS GIVEN TO INCLUDE PERCOCET PO PER REQUEST FOR PAIN. WILL CONTINUE TO MONITOR FOR NEEDS.
[2018-06-26] VITALS: BP 126/69
[2018-06-26 04:00] VITALS: BP 137/64
--- NOTE | 2018-06-26 04:14 | NUR ---
UNABLE TO DRAW BLOOD FROM IP...FLUSHED X6 AND STILL WILL NOT DRAW. LAB NOTIFIED.
[2018-06-26 07:38] LABS: BASOPHILS 0.1 % (0-2); EOSINOPHILS 2.2 % (0-7); HEMATOCRIT 28.6 % (36.0-48.0); HEMOGLOBIN 9.1 g/dL (12-16); IMMATURE GRANULOCYTES 0.2 % (0-5); LYMPHOCYTES 12.1 % (15-50); MCH 28.5 pg (26.0-34.0); MCHC 31.8 g/dL (31.0-37.0); MCV 89.7 fL (80.0-100.0); MEAN PLATELET VOLUME 9.1 fL (7.4-10.4); MONOCYTES 0.4 % (2-11); PLATELET COUNT 258 10x3/uL (130-400); RBC 3.19 10x6/uL (4.00-5.40); RDW 14.3 % (11.5-14.5); WBC 8.3 10x3/uL (4.8-10.8)
[2018-06-26 08:00] VITALS: BP 124/52
[2018-06-26 08:08] LABS: ALBUMIN 2.5 g/dL (3.4-5.0); ANION GAP 11.1 mmol/L (8-16); BILIRUBIN - TOTAL 0.43 mg/dL (0.2-1.3); CALCIUM 8.7 mg/dL (8.5-10.1); CARBON DIOXIDE 33.5 mmol/L (21.0-32.0); POTASSIUM - SERUM 3.6 mmol/L (3.5-5.1); PROTEIN - SERUM 5.8 g/dL (6.4-8.2)
--- NOTE | 2018-06-26 08:33 | NUR ---
PT LAYING IN BED RESTING WITH EYES CLOSED THIS AM. PT AWOKEN EASILY, RSEPIRATIONS EVEN AND UNLABORED, NO S/S OF DISTRESS NOTED. O2 NOTED @ 4L VIA HFNC. LUNG SOUNDS DIMINISHED. DENIES NEEDS, BED LOW AND LOCKED, SR UP X2, CL IN EASY REACH. WILL CONTINUE TO MONITOR.
[2018-06-26 12:00] VITALS: BP 110/57
--- NOTE | 2018-06-26 17:08 | NUR ---
PT RESTING PEACEFULLY IN BED, RESTING WITH EYES CLOSED. AWOKEN EASILY TO VERBAL STIMULI. PT IGIUGIG, DENIES NEEDS AT THIS TIME. CL IN EASY REACH.
--- NOTE | 2018-06-26 19:00 | NUR ---
REPORT RECEIVED AND CARE OF PT ASSUMED. PT SITTING UP IN BED WATCHING TV. LEFT IP SALINE LOCKED. WILL MONITOR FOR NEEDS.
--- NOTE | 2018-06-26 20:59 | NUR ---
HS MEDICATIONS GIVEN. WILL CONTINUE TO MONITOR FOR NEEDS.
[2018-06-26 21:02] VITALS: BP 130/70
--- NOTE | 2018-06-26 21:13 | NUR ---
GAVE PERCOCET PO PER REQUEST FOR PAIN. WILL MONITOR FOR EFFECTIVENESS. CALL LIGHT WITHIN REACH.
[2018-06-27 00:43] VITALS: BP 130/80
[2018-06-27 04:00] VITALS: BP 127/73
[2018-06-27 06:02] LABS: BASOPHILS 0.3 % (0-2); EOSINOPHILS 1.8 % (0-7); HEMOGLOBIN 9.2 g/dL (12-16); IMMATURE GRANULOCYTES 0.6 % (0-5); LYMPHOCYTES 10.2 % (15-50); MCH 28.4 pg (26.0-34.0); MCHC 31.7 g/dL (31.0-37.0); MCV 89.5 fL (80.0-100.0); MEAN PLATELET VOLUME 9.6 fL (7.4-10.4); MONOCYTES 0.2 % (2-11); NEUTROPHILS 86.9 % (40-80); PLATELET COUNT 244 10x3/uL (130-400); RBC 3.24 10x6/uL (4.00-5.40); RDW 14.2 % (11.5-14.5); WBC 9.3 10x3/uL (4.8-10.8)
[2018-06-27 06:38] LABS: ALBUMIN 2.5 g/dL (3.4-5.0); BILIRUBIN - TOTAL 0.35 mg/dL (0.2-1.3); CALCIUM 8.5 mg/dL (8.5-10.1); CARBON DIOXIDE 37.6 mmol/L (21.0-32.0); POTASSIUM - SERUM 3.6 mmol/L (3.5-5.1); PROTEIN - SERUM 5.8 g/dL (6.4-8.2)
[2018-06-27 06:39] LABS: CREATININE - SERUM 1.3 mg/dL (0.6-1.3)
--- NOTE | 2018-06-27 07:11 | NUR ---
REC'D IN BED AWAKE AND ALERT. RESP EVEN AND UNLABORED WITH NO DISTRESS NOTED. HAS O2 IN USE VIA N/C. CAN EXPRESS NEEDS AND WANTS. C/O GENERALIZED PAIN RATING 6/10 ON PAIN SCALE. WAS MEDICATED WITH PEROCECT PER ORDERS AT THIS TIME. ASSESSMENT COMPLETED. C/L IN REACH AT BEDSIDE.
[2018-06-27 08:09] VITALS: BP 115/56
[2018-06-27] MEDS ORDERED: FEXOFENADINE H180 MG PO (11:24)
[2018-06-27] MEDS ORDERED: ELIQUIS2.5 MG PO (11:25)
[2018-06-27] MEDS ORDERED: CYCLOBENZAPRINE10 MG PO (11:25)
[2018-06-27] MEDS ORDERED: ROBAXIN500 MG PO (11:25)
[2018-06-27] MEDS ORDERED: NEURONTIN 300300 MG PO (11:26)
[2018-06-27] MEDS ORDERED: PERCOCET 5-3251 TAB PO (11:27)
[2018-06-27] MEDS ORDERED: MIRALAX17 GM PO (11:28)
[2018-06-27] MEDS ORDERED: ZYLOPRIM100 MG PO (11:28)
--- NOTE | 2018-06-27 11:58 | NUR ---
SLEEPING,WITHOUT DISTRESS.
--- NOTE | 2018-06-27 12:03 | MORECARE ---
CASE MANAGEMENT DISCHARGE SUMMARY PATIENT: JORGE GARCIA UNIT: [id number] ADM DATE: 06/08/18 AGE: 73 : 45 SEX: F ROOM/BED: D.2217 AUTHOR: BUCKY,DOC PHYSICIAN: REFERRING PHYSICIAN: ANGY MOTT MD DATE OF SERVICE: 06/27/18 Discharge Plan Patient Name: JORGE GARCIA Facility: [facility]:[place] : 1945 Planned Disposition: Home with Home Health Anticipated Discharge Date: 06/15/18 Discharge Date: Expected LOS: 7 Initial Reviewer: [email or web address] Initial Review Date: 06/12/2018 Generated: 06/27/18 1:03 pm Comments DCP- Discharge Planning Updated by [email or web address]: Susan Benton on 06/27/18 11:[address] PATIENT WILL BE DISCHARGING HOME TODAY. IMM SERVED AND EXPLAINED. HER DAUGHTER WILL BE DRIVING HER HOME. [facility] IS SET UP I SPOKE WITH RAD. CM WILL CONTINUE TO FOLLOW AND ASSIST NEEDED PATIENT HAS HOME O2 AND NEBULIZER DCP- Discharge Planning Updated by [email or web address]: Kathrine Selby on 06/12/18 8:[address] Patient Name: JORGE GARCIA Admission Status: ER Accout number: [id number] Admission Date: 06-08-2018 : 1945 Admission Diagnosis:PNEUMONIA, UNSPECIFIED ORGANISM Attending: ANGY MOTT Current LOS: 4 Anticipated DC Date: 06-15-2018 Planned Disposition: Home with Home Health Primary Insurance: WE[employer] MEDICARE ADV Discharge Planning Comments: CM MET WITH PATIENT REGARDING D/C NEEDS AND PLANS. PATIENT STATED SHE LIVES NEXT DOOR TO HER DAUGHTER (LUCRETIA) AND SHE OR HER SON (PADMAJA) WILL DRIVE HER HOME AT DISCHARGE. PATIENT STATED THERE ARE ABOUT 7 STEPS TO ENTER AND IN HER HOME COMBINED. PATIENTS PCP IS DR. MONTE AND USES [facility] IN [place] FOR HER PHARMACY. PATIENT STATED SHE IS INDEPENDENT WITH HER CARE AND HAS OXYGEN (LINCARE) AND A NEBULIZER AT HOME. PATIENT SIGNED THE RENATE FORM FOR HOME HEALTH WITH [facility]ST AND THEN [facility] HER 2ND CHOICE. CM WILL CONTINUE TO FOLLOW PATIENT WITH D/C NEEDS AND PLANS. [facility]CP [facility] [place] LUCRETIA CUELLO (DAUGHTER) [phone] Solar Water Heater Installer: Kathrine Selby DCPIA - Discharge Planning Initial Assessment Updated by [email or web address]: Kathrine Selby on 06/12/18 9:03 am * Is the patient Alert and Oriented? Yes * How many steps to enter\exit or inside your home? * PCP DR. MONTE * Pharmacy [facility] * Preadmission Environment Home Alone * ADLs Independent * Equipment Nebulizer Oxygen * List name and contact numbers for known caregivers / representatives who currently or will assist patient after discharge: LUCRETIA CUELLO (DAUGHTER) [phone] PADMAJA GARCIA (SON) [phone] * Verbal permission to speak to the caregivers and representatives has been obtained from the patient. Yes * Community resources currently utilized None * Additional services required to return to the preadmission environment? Yes * Can the patient safely return to the preadmission environment? Yes * Has this patient been hospitalized within the prior 30 days at any hospital? Yes Last DP export: 06/24/18 2:38 p Patient Name: JORGE GARCIA Page [phone] at 1203 All edits/amendments must be made on the electronic document DICTATION DATE: 06/27/181202 IMPROVEMENT MANAGER: NISSA 06/27/181202 RPT#: [id number] DC DATE: STATUS: ADM IN [facility] [address] [place] [address] END OF REPORT
[2018-06-27 12:09] VITALS: BP 103/55
--- NOTE | 2018-06-27 12:26 | MORECARE ---
CASE MANAGEMENT DISCHARGE SUMMARY PATIENT: JORGE GARCIA UNIT: [id number] ADM DATE: 06/08/18 AGE: 73 : 45 SEX: F ROOM/BED: D.2217 AUTHOR: BUCKYDOC PHYSICIAN: REFERRING PHYSICIAN: ANGY MOTT MD DATE OF SERVICE: 06/27/18 Discharge Plan Patient Name: JORGE GARCIA Facility: [facility]:[place] : 1945 Planned Disposition: Home with Home Health Anticipated Discharge Date: 06/15/18 Discharge Date: Expected LOS: 7 Initial Reviewer: [email or web address] Initial Review Date: 06/12/2018 Generated: 06/27/18 1:26 pm Comments DCP- Discharge Planning Updated by [email or web address]: Susan Benton on 06/27/18 11:[address] PATIENTS DAUGHTER WAS ASKING ABOUT MEALS ON WHEELS, I SENT REFERRAL AND LEFT MESSAGE WITH [facility] DCP- Discharge Planning Updated by [email or web address]: Susan Benton on 06/27/18 11:[address] PATIENT WILL BE DISCHARGING HOME TODAY. IMM SERVED AND EXPLAINED. HER DAUGHTER WILL BE DRIVING HER HOME. [facility] IS SET UP I SPOKE WITH RAD. CM WILL CONTINUE TO FOLLOW AND ASSIST NEEDED PATIENT HAS HOME O2 AND NEBULIZER DCP- Discharge Planning Updated by [email or web address]: Kathrine Selby on 06/12/18 8:[address] Patient Name: JORGE GARCIA Admission Status: ER Accout number: [id number] Admission Date: 06-08-2018 : 1945 Admission Diagnosis:PNEUMONIA, UNSPECIFIED ORGANISM Attending: ANGY MOTT Current LOS: 4 Anticipated DC Date: 06-15-2018 Planned Disposition: Home with Home Health Primary Insurance: WE[employer] MEDICARE ADV Discharge Planning Comments: CM MET WITH PATIENT REGARDING D/C NEEDS AND PLANS. PATIENT STATED SHE LIVES NEXT DOOR TO HER DAUGHTER (LUCRETIA) AND SHE OR HER SON (PADMAJA) WILL DRIVE HER HOME AT DISCHARGE. PATIENT STATED THERE ARE ABOUT 7 STEPS TO ENTER AND IN HER HOME COMBINED. PATIENTS PCP IS DR. MOTNE AND USES [facility] IN [place] FOR HER PHARMACY. PATIENT STATED SHE IS INDEPENDENT WITH HER CARE AND HAS OXYGEN (LINCARE) AND A NEBULIZER AT HOME. PATIENT SIGNED THE RENATE FORM FOR HOME HEALTH WITH [facility] AND THEN [facility] HER 2ND CHOICE. CM WILL CONTINUE TO FOLLOW PATIENT WITH D/C NEEDS AND PLANS. [facility] [place] LUCRETIA CUELLO (DAUGHTER) [phone] Hard Hat Diver: Kathrine Selby DCPIA - Discharge Planning Initial Assessment Updated by [email or web address]: Kathrine Selby on 06/12/18 9:03 am * Is the patient Alert and Oriented? Yes * How many steps to enter\exit or inside your home? * PCP DR. MONTE * Pharmacy [facility] * Preadmission Environment Home Alone * ADLs Independent * Equipment Nebulizer Oxygen * List name and contact numbers for known caregivers / representatives who currently or will assist patient after discharge: LUCRETIA CUELLO (DAUGHTER) [phone] PADMAJA GARCIA (SON) [phone] * Verbal permission to speak to the caregivers and representatives has been obtained from the patient. Yes * Community resources currently utilized None * Additional services required to return to the preadmission environment? Yes * Can the patient safely return to the preadmission environment? Yes * Has this patient been hospitalized within the prior 30 days at any hospital? Yes External Providers External Provider: [facility] Next Contact Date: Service Request Date: Service Type: Resolution: Reviewer: Comments: Coverage Notice Reviewer: [email or web address] Baldo Benton Notice Issued Date-Time: 06/27/2018 12:00 Notice Type: IM Discharge Notice Notice Delivered To: Patient Relationship to Patient: Facility Maintenance Worker Name: Delivery Method: HAND - Hand Delivered Danuta Days: Prior Verbal Notification: Recipient Understood Notice: Yes Recipient Signature: Yes Med Rec Note Co-signed by Attending: Coverage Notice Comment: Last DP export: 06/27/18 11:03 a Patient Name: JORGE GARCIA Page 99323 at 1226 All edits/amendments must be made on the electronic document DICTATION DATE: 06/27/18 1226 GLASS PRODUCTION MACHINE OPERATOR: NISSA 06/27/18 1226 RPT#: [id number] DC DATE: STATUS: ADM IN [facility] [address] [place] [address] END OF REPORT
--- NOTE | 2018-06-27 14:29 | NUR ---
VOICE UNDERSTANDING OF DC ORDERS. NO IV ACCESS. STABLE CONDITION UPON DEPARTURE.
--- NOTE | 2018-06-27 15:19 | NUR ---
DAUGHTER HAS BEEN HERE AND THEN LEFT TO GO CHARTER BUS DRIVER HER GRANDSON FROM SCHOOL. PT PORT FLUSHED WITH NS AND THEN HEPARIN LOCKED. NEEDLE DC'D
--- NOTE | 2018-06-28 14:31 | MORECARE ---
CASE MANAGEMENT DISCHARGE SUMMARY PATIENT: JORGE GARCIA UNIT: [id number] ADM DATE: 06/08/18 AGE: 73 : 45 SEX: F ROOM/BED: D.2217 AUTHOR: SHANTANU LAWLER PHYSICIAN: REFERRING PHYSICIAN: ANGY MOTT MD DATE OF SERVICE: 06/28/18 Discharge Plan Patient Name: JORGE GARCIA Facility: [facility]:[place] : 1945 Planned Disposition: Home with Home Health Anticipated Discharge Date: 06/15/18 Discharge Date: 06/27/2018 Expected LOS: 7 Initial Reviewer: [email or web address] Initial Review Date: 06/12/2018 Generated: 06/28/18 3:30 pm Comments DCP- Discharge Planning Updated by [email or web address]: Susan Benton on 06/27/18 11:[address] PATIENTS DAUGHTER WAS ASKING ABOUT MEALS ON WHEELS, I SENT REFERRAL AND LEFT MESSAGE WITH [facility] DCP- Discharge Planning Updated by [email or web address]: Susan Benton on 06/27/18 11:[address] PATIENT WILL BE DISCHARGING HOME TODAY. IMM SERVED AND EXPLAINED. HER DAUGHTER WILL BE DRIVING HER HOME. [facility] IS SET UP I SPOKE WITH RAD. CM WILL CONTINUE TO FOLLOW AND ASSIST NEEDED PATIENT HAS HOME O2 AND NEBULIZER DCP- Discharge Planning Updated by [email or web address]: Kathrine Selby on 06/12/18 8:[address] Patient Name: JORGE GARCIA Admission Status: ER Accout number: [id number] Admission Date: 06-08-2018 : 1945 Admission Diagnosis:PNEUMONIA, UNSPECIFIED ORGANISM Attending: ANGY MOTT Current LOS: 4 Anticipated DC Date: 06-15-2018 Planned Disposition: Home with Home Health Primary Insurance: WE[employer] MEDICARE ADV Discharge Planning Comments: CM MET WITH PATIENT REGARDING D/C NEEDS AND PLANS. PATIENT STATED SHE LIVES NEXT DOOR TO HER DAUGHTER (LUCRETIA) AND SHE OR HER SON (PADMAJA) WILL DRIVE HER HOME AT DISCHARGE. PATIENT STATED THERE ARE ABOUT 7 STEPS TO ENTER AND IN HER HOME COMBINED. PATIENTS PCP IS DR. MONTE AND USES [facility] IN [place] FOR HER PHARMACY. PATIENT STATED SHE IS INDEPENDENT WITH HER CARE AND HAS OXYGEN (LINCARE) AND A NEBULIZER AT HOME. PATIENT SIGNED THE RENATE FORM FOR HOME HEALTH WITH [facility] AND THEN [facility] HER 2ND CHOICE. CM WILL CONTINUE TO FOLLOW PATIENT WITH D/C NEEDS AND PLANS. [facility]CP [facility] [place] LUCRETIA CUELLO (DAUGHTER) [phone] Cracking Machine Operator: Kathrine Selby DCPIA - Discharge Planning Initial Assessment Updated by [email or web address]: Kathrine Selby on 06/12/18 9:03 am * Is the patient Alert and Oriented? Yes * How many steps to enter\exit or inside your home? * PCP DR. MONTE * Pharmacy [facility] * Preadmission Environment Home Alone * ADLs Independent * Equipment Nebulizer Oxygen * List name and contact numbers for known caregivers / representatives who currently or will assist patient after discharge: LUCRETIA CUELLO (DAUGHTER) [phone] PADMAJA GARCIA (SON) [phone] * Verbal permission to speak to the caregivers and representatives has been obtained from the patient. Yes * Community resources currently utilized None * Additional services required to return to the preadmission environment? Yes * Can the patient safely return to the preadmission environment? Yes * Has this patient been hospitalized within the prior 30 days at any hospital? Yes Coverage Notice Reviewer: [email or web address] - Susan Benton Notice Issued Date-Time: 06/27/2018 12:00 Notice Type: IM Discharge Notice Notice Delivered To: Patient Relationship to Patient: It Risk And Assurance Senior Manager Name: Delivery Method: HAND - Hand Delivered Danuta Days: Prior Verbal Notification: Recipient Understood Notice: Yes Recipient Signature: Yes Med Rec Note Co-signed by Attending: Coverage Notice Comment: Last DP export: 06/27/18 11:26 a Patient Name: JORGE GARCIA Page 81895 at 1431 All edits/amendments must be made on the electronic document DICTATION DATE: 06/28/181429 DIRECTOR MBA: NISSA 06/28/181429 RPT#: [id number] DC DATE:06/27/18 STATUS: DIS IN [place] [id number] [place] [address] END OF REPORT
[2018-07-13 07:31] LABS: FUNGUS MYCOLOGY CULTURE Final report (())
== END 2018-06-27 14:30 | disposition home health service (06) | DRG 981 ==
LOC: D.ER 08:51 → D.MS 10:33 → D.EDHOLD 10:33 → D.MS 10:41
PROVIDERS: Emergency Medicine; Family Medicine; Internal Medicine Nephrology; Internal Medicine Pulmonary Disease; Radiology Diagnostic Radiology; ADMIT Emergency Medicine
PROC: 0JH60WZ Insertion of Totally Implantable Vascular Access Device into Chest Subcutaneous Tissue and Fascia, Open Approach (ICD-10-PCS; principal; 2018-06-11)
PROC: 05H633Z Insertion of Infusion Device into Left Subclavian Vein, Percutaneous Approach (ICD-10-PCS; 2018-06-11)
PROC: 0W993ZZ Drainage of Right Pleural Cavity, Percutaneous Approach (ICD-10-PCS; 2018-06-12)
DX: J18.9 Pneumonia, unspecified organism (principal); J96.00 Acute respiratory failure, unspecified whether with hypoxia or hypercapnia; E87.1 Hypo-osmolality and hyponatremia; C7A.8 Other malignant neuroendocrine tumors; J98.11 Atelectasis; I82.611 Acute embolism and thrombosis of superficial veins of right upper extremity; J90 Pleural effusion, not elsewhere classified; I10 Essential (primary) hypertension; I50.9 Heart failure, unspecified; F32.9 Major depressive disorder, single episode, unspecified; Z87.891 Personal history of nicotine dependence; I07.1 Rheumatic tricuspid insufficiency; I27.20 Pulmonary hypertension, unspecified; D64.9 Anemia, unspecified

== ENCOUNTER → 2018-07-02 13:02 | Outpatient (CLI) | payer MEDICARE, MEDICAID ==
[~2018-07-02] VITALS: Ht 154.9 cm; Wt 63.5 kg
[~2018-07-02 13:02] MED LIST changes: +DIFLUCAN100 MG PO; +ELIQUIS2.5 MG PO; +FEXOFENADINE H180 MG PO; +GRANIX300 MCG/0. SC; +Levaquin PREMIX IV; +MAXIPIME 2 GM/D52 G1 IV; +MIRALAX17 GM PO; +NEURONTIN 300300 MG PO; +PERCOCET 5-3251 TAB PO; +ROBAXIN500 MG PO; +VANCOMYCIN 1 GM/1 G1 IV; +ZYLOPRIM100 MG PO
[2018-07-02 13:34] VITALS: BP 120/76; Ht 154.9 cm; Wt 63.5 kg
== END | disposition home or self-care (01) ==
LOC: D.OPS 13:02 → D.ER 13:02
DX: D50.9 Iron deficiency anemia, unspecified (principal); Z01.812 Encounter for preprocedural laboratory examination

== ENCOUNTER 2018-07-03 12:56 | Outpatient (CLI) | payer MEDICARE, MEDICAID ==
[~2018-07-03] VITALS: Ht 154.9 cm; Wt 63.6 kg
[~2018-07-03 12:56] MED LIST changes: -DIFLUCAN100 MG PO; -GRANIX300 MCG/0. SC; -Levaquin PREMIX IV; -MAXIPIME 2 GM/D52 G1 IV; -VANCOMYCIN 1 GM/1 G1 IV
[2018-07-03 13:31] VITALS: BP 144/66; Ht 154.9 cm; Wt 63.6 kg
--- NOTE | 2018-07-03 13:45 | NUR ---
CALLED PHARMACY AND STATED TO THEM I AM NEEDING THE GRANIZ INJECTION THEY STATED THEY ARE GETTING IT NOW.
--- NOTE | 2018-07-03 14:30 | NUR ---
DISCHARGE PAPER SIGNED. PT LETHARGIC WILL WAIT TO DC PT AND CALL INTERNATIONAL TAX MANAGER.
--- NOTE | 2018-07-03 15:03 | NUR ---
DR. CROWDER STATES TO DENTAL CERAMIST ASSISTANT IF PT DOES NOT START TO LOOK BETTER IN A COUPLE HOURS THEN TAKE HER TO ER.
--- NOTE | 2018-07-03 15:06 | NUR ---
DR. CROWDER STATES TO GALLEY COOK IF PT DOES NOT START TO LOOK BETTER IN A A HOUR OR SO THEN TAKE HER TO ER.
--- NOTE | 2018-07-03 15:59 | NUR ---
PT STILL LETHARGIC. WELDING SUPERVISOR CALLED AND SHE STATES SHE IS GOING TO GET A STRETCHER AND PT WILL BE TAKEN TO ER.
--- NOTE | 2018-07-03 16:10 | NUR ---
PT TAKEN VIA STRECTHER TO ER.
== END 2018-07-03 16:14 ==
LOC: D.OPS 12:56 → D.M2 12:57 → D.OPS 16:14
DX: D50.9 Iron deficiency anemia, unspecified (principal); Z01.812 Encounter for preprocedural laboratory examination

== ENCOUNTER 2018-07-03 16:19 | Inpatient (IN) | payer MEDICARE, MEDICAID ==
[~2018-07-03] VITALS: Ht 154.9 cm; Wt 63.5 kg
--- NOTE | ~2018-07-03 | CN ---
PATIENT NAME:JORGE BOWMAN MEDICAL RECORD: [id number] : 45 LOCATION:D.[facility] ADMIT DATE: 07/03/18 ACCOUNT: [id number] CONSULTING PHYSICIAN: KEVIN WATERMAN MD REFERRING PHYSICIAN: CARMELO CHAVEZ MD DATE OF CONSULTATION: 07/04/2018 REQUESTING PHYSICIAN: Stacie Cervantes MD REASON FOR CONSULTATION: Acute mental status changes; pneumonia, right lower lobe; small cell carcinoma of the lung, right lower lobe. HISTORY OF PRESENT ILLNESS: Ms. Bowman is a 73-year-old female, very well known to me. The patient was just discharged home, brought in last night with acute mental status changes. The patient was in hypercarbic respiratory failure as well as pancytopenia. Now, the patient is on neutropenic precaution. The patient is sleepy, hard to arouse. The history was taken mainly by reviewing the patient's note and talking to the nursing staff. PAST MEDICAL HISTORY: 1. Recently diagnosed with small cell carcinoma of the lung. 2. Pneumonia. 3. Right pleural effusion, possible parapneumonic. 4. Arthritis. 5. Chronic headache. 6. Depression. ALLERGIES: SHE IS ALLERGIC TO SULFA, AMPICILLIN, AND NITROFURANTOIN. MEDICATIONS: [employer] was reviewed. PERSONAL AND SOCIAL HISTORY: The patient is nonsmoker and nondrinker. FAMILY HISTORY: Noncontributory. PHYSICAL EXAMINATION: GENERAL: Now, the patient is lying comfortably in bed. She is sleepy, but she is arousable. VITAL SIGNS: The blood pressure is 111/60, pulse is 85, respiration is 18, temperature is 98.2, and SpO2 is 96% on 5 liters nasal cannula. HEENT: Conjunctivae are pink. Sclerae are not icteric. NECK: Neck is supple. No JVD. CHEST: There is a crackle at the right base. No wheezing. HEART: Rate and rhythm regular. Normal sound. No murmur. ABDOMEN: Abdomen is soft. Bowel sounds present. No hepatosplenomegaly. RECTAL: Deferred. EXTREMITIES: No cyanosis. No clubbing. No pedal edema. CENTRAL NERVOUS SYSTEM: The patient is sleepy, but she is hardly arousable by calling. LABORATORY DATA: CBC; The WBC is 0.9, hemoglobin 8.6, hematocrit 27.3, and platelet count is 127. Chemistry; sodium 132 and potassium 3.4. ProBNP is 2336. ABG; the pH is 7.28, pCO2 is 71, pO2 is 58, and bicarb is 33.8. IMPRESSION: CONSULT REPORT [id number] JORGE BOWMAN 1. Acute mental status changes secondary to hypercarbia and metabolic encephalopathy. 2. Acute hypercarbic respiratory failure. 3. Respiratory acidosis. 4. Pneumonia, right lower lobe. 5. Right pleural effusion. 6. Pancytopenia, consistent with leukopenia, anemia, and thrombocytopenia. 7. Small cell carcinoma of the lung. RECOMMENDATION: 1. Agree with transfusion. 2. Continue Levaquin. I will add cefepime and vancomycin to cover for neutropenic fever. 3. Continue fluconazole. 4. Check the ABG. If the CO2 is high, start the patient on the BiPAP. Check the ammonia level. Dr. Medina, thank you for involving me in the care of Ms. Bowman. TRANSINT:[id number] Voice Confirmation ID: [id number] DOCUMENT ID: [id number] KEVIN WATERMAN MD CC: [id number] DICTATION DATE: 07/04/18 1638 COLLEGE DIRECTOR: 07/04/18 1750 ADM IN [facility] [address] [place] [address]
[2018-07-03 17:04] LABS: HEMATOCRIT 27.3 % (36.0-48.0); HEMOGLOBIN 8.6 g/dL (12-16); MCH 28.2 pg (26.0-34.0); MCHC 31.5 g/dL (31.0-37.0); MCV 89.5 fL (80.0-100.0); MEAN PLATELET VOLUME 9.7 fL (7.4-10.4); RBC 3.05 10x6/uL (4.00-5.40)
[2018-07-03 17:06] LABS: PLATELET COUNT 127 10x3/uL (130-400); WBC 0.9 10x3/uL (4.8-10.8)
--- NOTE | 2018-07-03 17:06 | NUR ---
CRITICAL LAB WBCS 0.9 RECEIVED FROM
[2018-07-03 17:36] LABS: BASOPHILS 7 % (0-2); EOSINOPHILS 12 % (0-7); LYMPHOCYTES 53 % (15-50); MONOCYTES 17 % (2-11); NEUTROPHILS 11 % (40-80); PLATELET ESTIMATE NORMAL; TARGET CELLS OCC
[2018-07-03 17:37] LABS: ALBUMIN 2.7 g/dL (3.4-5.0); ALKALINE PHOSPHATASE 97 U/L (46-116); ALT (SGPT) 27 U/L (10-68); BILIRUBIN - TOTAL 0.36 mg/dL (0.2-1.3); CALC OSMOLALITY 272 mosm/kg (275-300); CALCIUM 8.7 mg/dL (8.5-10.1); CARBON DIOXIDE 35.3 mmol/L (21.0-32.0); CHLORIDE - SERUM 92 mmol/L (98-107); CREATININE - SERUM 2.4 mg/dL (0.6-1.3); GLUCOSE 101 mg/dL (74-106); POTASSIUM - SERUM 4.2 mmol/L (3.5-5.1); PROTEIN - SERUM 6.9 g/dL (6.4-8.2); SODIUM 132 mmol/L (136-145); UREA NITROGEN 36 mg/dL (7-18); eGFR NON AFRICAN AMERICAN 21 mL/min (90-120)
[2018-07-03 17:38] LABS: ELLIPTOCYTES OCC; STOMATOCYTES OCC
[2018-07-03 17:44] LABS: INR 0.95 (0.85-1.17); PROTIME 12.2 SECONDS (11.6-15.0)
[2018-07-03 17:50] LABS: APPEARANCE CLEAR (CLEAR); BILIRUBIN NEGATIVE (NEGATIVE); COLOR YELLOW (YELLOW); GLUCOSE NEGATIVE (NEGATIVE); KETONE NEGATIVE (NEGATIVE); NITRITE NEGATIVE (NEGATIVE); PROTEIN NEGATIVE (NEGATIVE); SPECIFIC GRAVITY 1.015 (1.005-1.020); UROBILINOGEN NORMAL (NORMAL)
[2018-07-03 17:50] LABS: CKMB 1.4 U/L (0.0-3.6); CREATINE KINASE 53 UL (21-215); PRO BNP 2336 pg/mL (0-125); THYROID STIMULATING HORMONE 4.72 uIU/mL (0.36-3.74)
[2018-07-03 17:53] LABS: TROPONIN-I < 0.017 ng/mL (0.000-0.060)
[2018-07-03 18:05] LABS: UDS - AMPHET NEGATIVE QUAL (NEGATIVE); UDS - BARB NEGATIVE QUAL (NEGATIVE); UDS - BENZO POSITIVE QUAL (NEGATIVE); UDS - COCAINE NEGATIVE QUAL (NEGATIVE); UDS - OPIATE POSITIVE QUAL (NEGATIVE); UDS - PCP NEGATIVE QUAL (NEGATIVE); UDS - THC NEGATIVE QUAL (NEGATIVE)
--- NOTE | 2018-07-03 18:30 | NUR ---
mAXIPIME INFUSION STOPPED AT 1830 50CC INFUSED....
--- NOTE | 2018-07-03 19:17 | MORECARE ---
CASE MANAGEMENT DISCHARGE SUMMARY PATIENT: JORGE BOWMAN UNIT: [id number] ADM DATE: 07/03/18 AGE: 73 : 45 SEX: F ROOM/BED: D.2206 AUTHOR: SHANTANU LAWLER PHYSICIAN: REFERRING PHYSICIAN: CARMELO CHAVEZ MD DATE OF SERVICE: 07/03/18 Discharge Plan Patient Name: JORGE BOWMAN [facility] [facility] 1945 Planned Disposition: Home Health Service Anticipated Discharge Date: 07/08/18 Discharge Date: Expected LOS: 5 Initial Reviewer: [email or web address] Initial Review Date: 07/03/2018 Generated: 07/03/18 8:16 pm DCPIA - Discharge Planning Initial Assessment Updated by [email or web address]: Liseth Mosley on 07/03/18 7:13 pm * Is the patient Alert and Oriented? No * How many steps to enter\exit or inside your home? * PCP Dr. Megha Wan * Pharmacy [facility] in [place] * Preadmission Environment Home with Family * ADLs Partial Dependent * Partial ADLs (Assistance needed) Ambulation * Equipment Cane Nebulizer Oxygen Rolling Walker Shower Chair * Other Equipment [facility] is O2 provider * List name and contact numbers for known caregivers / representatives who currently or will assist patient after discharge: Lali Perez - daughter - [phone] Dagoberto Bowman - son - [phone] * Verbal permission to speak to the caregivers and representatives has been obtained from the patient. Yes * Community resources currently utilized Home Health * Please name any agencies selected above. [facility] * Additional services required to return to the preadmission environment? Yes * Can the patient safely return to the preadmission environment? No * Has this patient been hospitalized within the prior 30 days at any hospital? Yes Patient Name: JORGE BOWMAN Page 86209 at 1917 All edits/amendments must be made on the electronic document DICTATION DATE: 07/03/181915 BRASS CLEANER: NISSA 07/03/181915 RPT#: [id number] DC DATE: STATUS: ADM IN [facility] [address] [place] [address] END OF REPORT
--- NOTE | 2018-07-03 19:29 | MORECARE ---
CASE MANAGEMENT DISCHARGE SUMMARY PATIENT: JORGE BOWMAN UNIT: [id number] ADM DATE: 07/03/18 AGE: 73 : 45 SEX: F ROOM/BED: D.2206 AUTHOR: SHANTANU LAWLER PHYSICIAN: REFERRING PHYSICIAN: CARMELO CHAVEZ MD DATE OF SERVICE: 07/03/18 Discharge Plan Patient Name: JORGE BOWMAN Facility: [facility]:[place] : 1945 Planned Disposition: Home Health Service Anticipated Discharge Date: 07/08/18 Discharge Date: Expected LOS: 5 Initial Reviewer: [email or web address] Initial Review Date: 07/03/2018 Generated: 07/03/18 8:29 pm DCP- Discharge Planning Updated by [email or web address]: Liseth Mosley on 07/03/18 6:[address] Patient Name: JORGE BOWMAN Admission Status: ER Accout number: [id number] Admission Date: 07-03-2018 : 1945 Admission Diagnosis: Attending: CARMELO CHAVEZ Current LOS: 1 Anticipated DC Date: 07-08-2018 Planned Disposition: Home Health Service Primary Insurance: WELLCARE MEDICARE ADV Discharge Planning Comments: CM met with patient and her daughter, Lali to complete initial dc planning assessment. Patient disoriented and not able to answer questions at time of assessment. CM educated Lali on the CM role and verbal consent given by Lali to complete assessment. Patient lives at home on her daughter's property. Since discharge on the 27 of June her nephew has been staying with her. She also has [facility] whom has been seeing her. She has not had visits by [facility] at this time according to Lali. Lali reports the confusion is new onset for patient. Lali had multiple questions regarding nursing homes and assisted livings. CM answered questions and informed her that the patient would need to apply for local intermodal truck driver medicaid. She verbalized understanding. At discharge Lali hopes the patient can return home with resumption of home health. Lali is not sure what is going to be needed at this time for discharge. CM will continue to follow and will assist as needed with dc plans/needs. Mosaic Tile Maker: Liseth Mosley RN, [facility] DCPIA - Discharge Planning Initial Assessment Updated by [email or web address]: Liseth Mosley on 07/03/18 7:13 pm * Is the patient Alert and Oriented? No * How many steps to enter\exit or inside your home? * PCP Dr. Megha Wan * Pharmacy [facility] in [place] * Preadmission Environment Home with Family * ADLs Partial Dependent * Partial ADLs (Assistance needed) Ambulation * Equipment Cane Nebulizer Oxygen Rolling Walker Shower Chair * Other Equipment [facility] is O2 provider * List name and contact numbers for known caregivers / representatives who currently or will assist patient after discharge: Lali Perez - daughter - [phone] Dagoberto Bowman - son - [phone] * Verbal permission to speak to the caregivers and representatives has been obtained from the patient. Yes * Community resources currently utilized Home Health * Please name any agencies selected above. [facility] * Additional services required to return to the preadmission environment? Yes * Can the patient safely return to the preadmission environment? No * Has this patient been hospitalized within the prior 30 days at any hospital? Yes Last DP export: 07/03/18 6:16 p Patient Name: JORGE BOWMAN Page 18209 at 1929 All edits/amendments must be made on the electronic document DICTATION DATE: 07/03/181927 MANAGER OF CLINICAL: NISSA 07/03/181927 RPT#: [id number] DC DATE: STATUS: ADM IN [facility] [address] [place] [address] END OF REPORT
--- NOTE | 2018-07-03 20:25 | NUR ---
RECEIVED PT TO FLOOR FROM ER VIA STRETCHER. PT ALERT & ORIENTED. ER NURSE STATES PT CAME AROUND RIGHT BEFORE BRINGING TO FLOOR. REVIEWED HOME MEDS AND HISTORY. OXYGEN AT 3L/NC. DAUGHTER WENT TO GET PT SOME FOOD. PT STATES SHE IS "VERY HUNGRY". CALLED DR. CHAVEZ ABOUT PAIN AND SLEEPING MEDS. RECEIVED ORDERS TO CONTINUE THESE FROM HOME MED LIST. NO OTHER NEEDS. WILL CONTINUE TO MONITOR.
[2018-07-04] VITALS: BP 94/45; BP 96/47
[2018-07-04 01:04] VITALS: BP 117/46; BMI 26.5
[2018-07-04 06:39] LABS: HEMATOCRIT 23.1 % (36.0-48.0); MCH 28.6 pg (26.0-34.0); MCHC 31.6 g/dL (31.0-37.0); MCV 90.6 fL (80.0-100.0); MEAN PLATELET VOLUME 9.5 fL (7.4-10.4); PLATELET COUNT 129 10x3/uL (130-400); RBC 2.55 10x6/uL (4.00-5.40); RDW 14.1 % (11.5-14.5)
[2018-07-04 06:52] LABS: HEMOGLOBIN 7.3 g/dL (12-16)
[2018-07-04 07:01] LABS: ANION GAP 8.6 mmol/L (8-16); CALCIUM 8.3 mg/dL (8.5-10.1); CARBON DIOXIDE 33.8 mmol/L (21.0-32.0); CREATININE - SERUM 2.3 mg/dL (0.6-1.3)
[2018-07-04 07:02] LABS: POTASSIUM - SERUM 3.4 mmol/L (3.5-5.1)
--- NOTE | 2018-07-04 07:15 | NUR ---
MORNING ASSESSMENT COMPLETE. SEE ASSESSMETN FLOWSHEET FOR FURTHER DETAILS. TP LYING IN BED AAO X3 TO PERSON, PLACE, AND TIME. L CHEST PORT CdI; PATENT. CRITICAL LABS- WBC 0.9- PUT ON NEUTROPENIC ISOLATION AND CALLED DR. CROWDER. HGB 7.2- CALLED DR. CROWDER. DENIES NEEDS AT THIS TIME. CL IN REACH.
[2018-07-04 07:45] LABS: ANISOCYTOSIS OCC; LYMPHOCYTES 54 % (15-50); MONOCYTES 20 % (2-11); NEUTROPHILS 18 % (40-80); PLATELET ESTIMATE NORMAL; ROULEAUX OCC
[2018-07-04 09:18] VITALS: BP 106/61
[2018-07-04 11:52] VITALS: BP 103/54
[2018-07-04 12:01] VITALS: BMI 26.4
[2018-07-04 16:14] VITALS: Ht 154.9 cm; Wt 63.5 kg
[2018-07-04 16:29] VITALS: BP 111/60
[2018-07-04 20:00] VITALS: BP 119/71
--- NOTE | 2018-07-04 20:45 | NUR ---
PT RESTLESS AND AGITATED. PT STATES DISCOMFORT. WILL GIVE PAIN MEDICATION PER MAR AND RESTORIL FOR SLEEP. NO OTHER SIGNS OF DISTRESS. BREATHING EVEN AND UNLABORED. SKIN CLEAN DRY AND ITNACT. SOME SWELLING PRESENT IN BILATERAL ARMS AND LEGS LT SIDE. BOWEL SOUNDS ACTIVE. VU IN PLACE NO SIGNS OF INFECTION OR REDNESS. WILL CONTINUE PLAN OF CARE. CALL LIGHT IN REACH.
--- NOTE | 2018-07-05 01:44 | NUR ---
PATIENT ASLEEP WITH C-PAP IN PLACE NO S/S OF DISTRESS. NO NEEDS NOTED. REMAINS OM ISOLATION AND RESERVE RIGHT ARM. CALL LIGHT IN REACH
[2018-07-05 04:00] VITALS: BP 145/70
[2018-07-05 06:13] LABS: MCH 28.7 pg (26.0-34.0); MCHC 32.6 g/dL (31.0-37.0); MEAN PLATELET VOLUME 9.7 fL (7.4-10.4); RDW 14.9 % (11.5-14.5)
[2018-07-05 06:19] LABS: ALBUMIN 2.3 g/dL (3.4-5.0); ANION GAP 9.8 mmol/L (8-16); BILIRUBIN - TOTAL 0.41 mg/dL (0.2-1.3); CALCIUM 8.8 mg/dL (8.5-10.1); CARBON DIOXIDE 35.3 mmol/L (21.0-32.0); CREATININE - SERUM 2.4 mg/dL (0.6-1.3); POTASSIUM - SERUM 3.1 mmol/L (3.5-5.1); PROTEIN - SERUM 6.5 g/dL (6.4-8.2)
[2018-07-05 06:38] LABS: RBC 3.63 10x6/uL (4.00-5.40); WBC 5.1 10x3/uL (4.8-10.8)
[2018-07-05 06:39] LABS: HEMATOCRIT 31.9 % (36.0-48.0); HEMOGLOBIN 10.4 g/dL (12-16); MCV 87.9 fL (80.0-100.0); PLATELET COUNT 182 10x3/uL (130-400)
[2018-07-05 08:02] LABS: EOSINOPHILS 4 % (0-7); LYMPHOCYTES 30 % (15-50); MONOCYTES 13 % (2-11); NEUTROPHILS 38 % (40-80); PLATELET ESTIMATE NORMAL; ROULEAUX OCC
[2018-07-05 08:45] VITALS: BP 95/70
[2018-07-05 12:49] VITALS: BP 117/66
--- NOTE | 2018-07-05 14:03 | NUR ---
MORNING ASSESSMETN COMPLETE. SEE ASSESSMENT FLOWSHEET FOR FURTHER DERTAILS. PT LYING IN BED AAO X3 TO PERSON, PLACE, AND TIME. F/C IN POLACE. EDEMA TO L SIDE OF BODY- LASIX IN USE. SATS WITHIN NORMAL RANGE ON 2L O2 PER NC. DENIES NEEDS AT THIS TIME. DAUGTHER AT BEDSIDE. CL IN REACH.
[2018-07-05 16:16] VITALS: BP 130/55
[2018-07-05 20:00] VITALS: BP 114/51
--- NOTE | 2018-07-05 20:45 | NUR ---
SUPINE IN BED, EYES CLOSED, RESPIRATIONS 21. CONTINUOUS BIPAP IN USE. NO RESPONSE TO VERBAL STIMULUS OR STERNAL RUB, BUT SLIGHT RESPONSE TO PRESSURE ON NAILBEDS. WILL CONTINUE TO MONITOR.
--- NOTE | 2018-07-05 22:00 | NUR ---
NOTIFIED RT MARCUS THAT THE PATIENT'S O2 IS 73%. TOLD STONEY CHAPA THAT I HAD NOTIFIED RT
[2018-07-06] VITALS: BP 96/38
--- NOTE | 2018-07-06 03:15 | NUR ---
CONCUR W/ FIELD CROP FARMER ASSESSMENT
[2018-07-06 04:00] VITALS: BP 90/41
[2018-07-06 05:47] LABS: BASOPHILS 2.5 % (0-2); EOSINOPHILS 0.8 % (0-7); HEMATOCRIT 33.5 % (36.0-48.0); HEMOGLOBIN 10.5 g/dL (12-16); IMMATURE GRANULOCYTES 9.1 % (0-5); LYMPHOCYTES 5.8 % (15-50); MCHC 31.3 g/dL (31.0-37.0); MEAN PLATELET VOLUME 9.5 fL (7.4-10.4); MONOCYTES 11.3 % (2-11); NEUTROPHILS 70.5 % (40-80); RBC 3.62 10x6/uL (4.00-5.40); RDW 15.6 % (11.5-14.5)
[2018-07-06 05:48] LABS: MCV 92.5 fL (80.0-100.0); PLATELET COUNT 252 10x3/uL (130-400); WBC 14.6 10x3/uL (4.8-10.8)
[2018-07-06 06:41] LABS: ANION GAP 12.8 mmol/L (8-16); BILIRUBIN - TOTAL 0.27 mg/dL (0.2-1.3); CALCIUM 8.5 mg/dL (8.5-10.1); CARBON DIOXIDE 32.1 mmol/L (21.0-32.0); CREATININE - SERUM 2.7 mg/dL (0.6-1.3); POTASSIUM - SERUM 3.9 mmol/L (3.5-5.1); PROTEIN - SERUM 6.1 g/dL (6.4-8.2)
--- NOTE | 2018-07-06 09:14 | MORECARE ---
CASE MANAGEMENT DISCHARGE SUMMARY PATIENT: JORGE BOWMAN UNIT: [id number] ADM DATE: 07/03/18 AGE: 73 : 45 SEX: F ROOM/BED: D.2206 AUTHOR: SHANTANU LAWLER PHYSICIAN: REFERRING PHYSICIAN: CARMELO CHAVEZ MD DATE OF SERVICE: 07/06/18 Discharge Plan Patient Name: JORGE BOWMAN Facility: [facility]:[place] : 1945 Planned Disposition: Home Health Service Anticipated Discharge Date: 07/08/18 Discharge Date: Expected LOS: 5 Initial Reviewer: [email or web address] Initial Review Date: 07/03/2018 Generated: 07/06/18 10:14 am Comments DCP- Discharge Planning Updated by [email or web address]: Susan Benton on 07/06/18 8:[address] SPOKE WITH DAUGHTER AND SON (VIA PHONE) THEY WOULD LIKE INFORMATION ABOUT HOSPICE & TO SPEAK WITH A MD. NAIMA WITH [facility] CAME UP AND SPOKE WITH THE DAUGHTER. I CALLED SALVATORE SAVAGE ABOUT HOSPICE AND SHE STATED THAT DR CROWDER WILL NEED TO BE THE ONE TO SPEAK WITH THE FAMILY, BECAUSE SHE IS THE ONE TREATING THE CANCER. I CALLED DR CROWDER AND SHE CAME AND SPOKE WITH THE DAUGHTER. NEW ORDER RECEIVED FOR HOSPICE CONSULT. ORDER FAXED TO NAIMA. CM WILL CONTINUE TO FOLLOW AND ASSIST WITH DC PLANNING DCP- Discharge Planning Updated by [id number]: Liseth Mosley on 07/03/18 6:[address] Patient Name: JORGE BOWMAN Admission Status: ER Accout number: [id number] Admission Date: 07-03-2018 : 1945 Admission Diagnosis: Attending: CARMELO CHAVEZ Current LOS: 1 Anticipated DC Date: 07-08-2018 Planned Disposition: Home Health Service Primary Insurance: [employer] MEDICARE ADV Discharge Planning Comments: CM met with patient and her daughter, Lali to complete initial dc planning assessment. Patient disoriented and not able to answer questions at time of assessment. CM educated Lali on the CM role and verbal consent given by Lali to complete assessment. Patient lives at home on her daughter's property. Since discharge on the 27 of June her nephew has been staying with her. She also has [facility] whom has been seeing her. She has not had visits by [facility] at this time according to Lali. Lali reports the confusion is new onset for patient. Lali had multiple questions regarding nursing homes and assisted livings. CM answered questions and informed her that the patient would need to apply for terminal makeup operator medicaid. She verbalized understanding. At discharge Lali hopes the patient can return home with resumption of home health. Lali is not sure what is going to be needed at this time for discharge. CM will continue to follow and will assist as needed with dc plans/needs. It Program Manager: Liseth Mosley RN, [facility] DCPIA - Discharge Planning Initial Assessment Updated by [email or web address]: Liseth Mosley on 07/03/18 7:13 pm * Is the patient Alert and Oriented? No * How many steps to enter\exit or inside your home? * PCP Dr. Megha Wan * Pharmacy [facility] in [place] * Preadmission Environment Home with Family * ADLs Partial Dependent * Partial ADLs (Assistance needed) Ambulation * Equipment Cane Nebulizer Oxygen Rolling Walker Shower Chair * Other Equipment [employer] is O2 provider * List name and contact numbers for known caregivers / representatives who currently or will assist patient after discharge: Lali Perez - daughter - [phone] Dagoberto Bowman - son - [phone] * Verbal permission to speak to the caregivers and representatives has been obtained from the patient. Yes * Community resources currently utilized Home Health * Please name any agencies selected above. [facility] * Additional services required to return to the preadmission environment? Yes * Can the patient safely return to the preadmission environment? No * Has this patient been hospitalized within the prior 30 days at any hospital? Yes External Providers External Provider: [facility] [facility] Next Contact Date: Service Request Date: Service Type: Resolution: Reviewer: Comments: Last DP export: 07/03/18 6:29 p Patient Name: JORGE BOWMAN Page [id number] at 0914 All edits/amendments must be made on the electronic document DICTATION DATE: 07/06/18913 REVERSE UNIT OPERATOR: NISSA 07/06/18913 RPT#: [id number] DC DATE: STATUS: ADM IN [facility] [address] [place] [address] END OF REPORT
[2018-07-06 10:04] VITALS: BP 94/59
--- NOTE | 2018-07-06 11:10 | MORECARE ---
CASE MANAGEMENT DISCHARGE SUMMARY PATIENT: JORGE BOWMAN UNIT: [id number] ADM DATE: 07/03/18 AGE: 73 : 45 SEX: F ROOM/BED: D.2206 AUTHOR: SHANTANU LAWLER PHYSICIAN: REFERRING PHYSICIAN: CARMELO CHAVEZ MD DATE OF SERVICE: 07/06/18 Discharge Plan Patient Name: JORGE BOWMAN Facility: [facility]:[place] : 1945 Planned Disposition: Home Health Service Anticipated Discharge Date: 07/08/18 Discharge Date: Expected LOS: 5 Initial Reviewer: [email or web address] Initial Review Date: 07/03/2018 Generated: 07/06/18 12:10 pm Comments DCP- Discharge Planning Updated by [email or web address]: Susan Benton on 07/06/18 8:[address] SPOKE WITH DAUGHTER AND SON (VIA PHONE) THEY WOULD LIKE INFORMATION ABOUT HOSPICE & TO SPEAK WITH A MD. NAIMA WITH [facility] CAME UP AND SPOKE WITH THE DAUGHTER. I CALLED SALVATORE SAVAGE ABOUT HOSPICE AND SHE STATED THAT DR CROWDER WILL NEED TO BE THE ONE TO SPEAK WITH THE FAMILY, BECAUSE SHE IS THE ONE TREATING THE CANCER. I CALLED DR CROWDER AND SHE CAME AND SPOKE WITH THE DAUGHTER. NEW ORDER RECEIVED FOR HOSPICE CONSULT. ORDER FAXED TO NIAMA. CM WILL CONTINUE TO FOLLOW AND ASSIST WITH DC PLANNING DCP- Discharge Planning Updated by [email or web address]: Liseth Mosley on 07/03/18 6:[address] Patient Name: JORGE BOWMAN Admission Status: ER Accout number: [id number] Admission Date: 07-03-2018 : 1945 Admission Diagnosis: Attending: CARMELO CHAVEZ Current LOS: 1 Anticipated DC Date: 07-08-2018 Planned Disposition: Home Health Service Primary Insurance: WELLCARE MEDICARE ADV Discharge Planning Comments: CM met with patient and her daughter, Minda to complete initial dc planning assessment. Patient disoriented and not able to answer questions at time of assessment. CM educated Minda on the CM role and verbal consent given by Minda to complete assessment. Patient lives at home on her daughter's property. Since discharge on the 27 of June her nephew has been staying with her. She also has [facility] whom has been seeing her. She has not had visits by House Calls at this time according to [place]. Minda reports the confusion is new onset for patient. Minda had multiple questions regarding nursing homes and assisted livings. CM answered questions and informed her that the patient would need to apply for oil heaterman medicaid. She verbalized understanding. At discharge Minda hopes the patient can return home with resumption of home health. Minda is not sure what is going to be needed at this time for discharge. CM will continue to follow and will assist as needed with dc plans/needs. Senior Principal Process Engineer: Liseth Mosley RN, [facility] DCPIA - Discharge Planning Initial Assessment Updated by [email or web address]: Liseth Mosley on 07/03/18 7:13 pm * Is the patient Alert and Oriented? No * How many steps to enter\exit or inside your home? * PCP Dr. Megha Wan * Pharmacy [facility] in [place] * Preadmission Environment Home with Family * ADLs Partial Dependent * Partial ADLs (Assistance needed) Ambulation * Equipment Cane Nebulizer Oxygen Rolling Walker Shower Chair * Other Equipment [employer] is O2 provider * List name and contact numbers for known caregivers / representatives who currently or will assist patient after discharge: Minda Perez - daughter - [phone] Dagoberto Bowman - son - [phone] * Verbal permission to speak to the caregivers and representatives has been obtained from the patient. Yes * Community resources currently utilized Home Health * Please name any agencies selected above. [facility] * Additional services required to return to the preadmission environment? Yes * Can the patient safely return to the preadmission environment? No * Has this patient been hospitalized within the prior 30 days at any hospital? Yes Coverage Notice Reviewer: [email or web address] Baldo Benton Notice Issued Date-Time: 07/06/2018 9:00 Notice Type: IM Discharge Notice Notice Delivered To: Family Member Relationship to Patient: Daughter Software Specialist Name: minda Delivery Method: HAND - Hand Delivered Danuta Days: Prior Verbal Notification: Yes Recipient Understood Notice: Yes Recipient Signature: Med Rec Note Co-signed by Attending: Coverage Notice Comment: Last DP export: 07/06/18 8:14 a Patient Name: JORGE BOWMAN Page [phone] at 1110 All edits/amendments must be made on the electronic document DICTATION DATE: 07/06/181109 COMMERCIAL LITIGATION ATTORNEY: NISSA 07/06/181109 RPT#: [id number] DC DATE: STATUS: ADM IN [facility] [address] [place] [address] END OF REPORT
[2018-07-06] MEDS ORDERED: VANCOMYCIN 1 GM/1 G1 IV (11:11)
[2018-07-06] MEDS ORDERED: ALBUTEROL2.5 MG/3 M INH (11:11)
[2018-07-06] MEDS ORDERED: DIFLUCAN100 MG PO (11:11)
[2018-07-06] MEDS ORDERED: Levaquin PREMIX IV (11:11)
[2018-07-06] MEDS ORDERED: MAXIPIME 2 GM/D52 G1 IV (11:11)
[2018-07-06] MEDS ORDERED: GRANIX300 MCG/0. SC (11:12)
--- NOTE | 2018-07-06 11:19 | MORECARE ---
CASE MANAGEMENT DISCHARGE SUMMARY PATIENT: JORGE BOWMAN UNIT: [id number] ADM DATE: 07/03/18 AGE: 73 : 45 SEX: F ROOM/BED: D.2206 AUTHOR: SHANTANU LAWLER PHYSICIAN: REFERRING PHYSICIAN: CARMELO CHAVEZ MD DATE OF SERVICE: 07/06/18 Discharge Plan Patient Name: JORGE BOWMAN Facility: [facility]:[place] : 1945 Planned Disposition: Home Health Service Anticipated Discharge Date: 07/08/18 Discharge Date: 07/06/2018 Expected LOS: 5 Initial Reviewer: [email or web address] Initial Review Date: 07/03/2018 Generated: 07/06/18 12:19 pm Comments DCP- Discharge Planning Updated by [email or web address]: Susan Benton on 07/06/18 10:[address] Patient has been accepted to [facility]. IMM explained to Daughter, patient is unresponsive. CM will continue to follow and assist as needed DCP- Discharge Planning Updated by [email or web address]: Susan Benton on 07/06/18 8:[address] SPOKE WITH DAUGHTER AND SON (VIA PHONE) THEY WOULD LIKE INFORMATION ABOUT HOSPICE & TO SPEAK WITH A MD. NAIMA WITH [facility] CAME UP AND SPOKE WITH THE DAUGHTER. I CALLED SALVATORE SAVAGE ABOUT HOSPICE AND SHE STATED THAT DR CROWDER WILL NEED TO BE THE ONE TO SPEAK WITH THE FAMILY, BECAUSE SHE IS THE ONE TREATING THE CANCER. I CALLED DR CROWDER AND SHE CAME AND SPOKE WITH THE DAUGHTER. NEW ORDER RECEIVED FOR HOSPICE CONSULT. ORDER FAXED TO NAIMA. CM WILL CONTINUE TO FOLLOW AND ASSIST WITH DC PLANNING DCP- Discharge Planning Updated by [email or web address]: Liseth Mosley on 07/03/18 6:[address] Patient Name: JORGE BOWMAN Admission Status: ER Accout number: [id number] Admission Date: 07-03-2018 : 1945 Admission Diagnosis: Attending: CARMELO CHAVEZ Current LOS: 1 Anticipated DC Date: 07-08-2018 Planned Disposition: Home Health Service Primary Insurance: WE[employer]ARE MEDICARE ADV Discharge Planning Comments: CM met with patient and her daughterMinda to complete initial dc planning assessment. Patient disoriented and not able to answer questions at time of assessment. CM educated Minda on the CM role and verbal consent given by Minda to complete assessment. Patient lives at home on her daughter's property. Since discharge on the 27 of June her nephew has been staying with her. She also has [facility] whom has been seeing her. She has not had visits by House Calls at this time according to Minda. Minda reports the confusion is new onset for patient. Minda had multiple questions regarding nursing homes and assisted livings. CM answered questions and informed her that the patient would need to apply for assisted medicaid. She verbalized understanding. At discharge Minda hopes the patient can return home with resumption of home health. Minda is not sure what is going to be needed at this time for discharge. CM will continue to follow and will assist as needed with dc plans/needs. Rack Loader: Liseth Mosley RN, [facility] DCPIA - Discharge Planning Initial Assessment Updated by [email or web address]: Liseth Mosley on 07/03/18 7:13 pm * Is the patient Alert and Oriented? No * How many steps to enter\exit or inside your home? * PCP Dr. Megha Wan * Pharmacy [facility] in [place] * Preadmission Environment Home with Family * ADLs Partial Dependent * Partial ADLs (Assistance needed) Ambulation * Equipment Cane Nebulizer Oxygen Rolling Walker Shower Chair * Other Equipment [employer] is O2 provider * List name and contact numbers for known caregivers / representatives who currently or will assist patient after discharge: Minda Perez - daughter - [phone] Dagoberto Bowman - son - [phone] * Verbal permission to speak to the caregivers and representatives has been obtained from the patient. Yes * Community resources currently utilized Home Health * Please name any agencies selected above. [facility] * Additional services required to return to the preadmission environment? Yes * Can the patient safely return to the preadmission environment? No * Has this patient been hospitalized within the prior 30 days at any hospital? Yes Coverage Notice Reviewer: [email or web address] Baldo Benton Notice Issued Date-Time: 07/06/2018 9:00 Notice Type: IM Discharge Notice Notice Delivered To: Family Member Relationship to Patient: Daughter Coil Maker Name: minda Delivery Method: HAND - Hand Delivered Danuta Days: Prior Verbal Notification: Yes Recipient Understood Notice: Yes Recipient Signature: Med Rec Note Co-signed by Attending: Coverage Notice Comment: Last DP export: 07/06/18 10:10 a Patient Name: JORGE BOWMAN Page [id number] at 1119 All edits/amendments must be made on the electronic document DICTATION DATE: 07/06/181117 COIL MAKER: NISSA 07/06/181117 RPT#: [id number] DC DATE:07/06/18 STATUS: DIS IN [facility] [address] [place] [address] END OF REPORT
--- NOTE | 2018-07-08 11:49 | MORECARE ---
CASE MANAGEMENT DISCHARGE SUMMARY PATIENT: JORGE BOWMAN UNIT: [id number] ADM DATE: 07/03/18 AGE: 73 : 45 SEX: F ROOM/BED: D.2206 AUTHOR: SHANTANU LAWLER PHYSICIAN: REFERRING PHYSICIAN: CARMELO CHAVEZ MD DATE OF SERVICE: 07/08/18 Discharge Plan Patient Name: JORGE BOWMAN Facility: [facility]:[place] : 1945 Planned Disposition: Home Health Service Anticipated Discharge Date: 07/08/18 Discharge Date: 07/06/2018 Expected LOS: 5 Initial Reviewer: [email or web address] Initial Review Date: 07/03/2018 Generated: 07/08/18 12:49 pm Comments DCP- Discharge Planning Updated by [email or web address]: Susan Benton on 07/06/18 10:[address] Patient has been accepted to [facility]. IMM explained to Daughter, patient is unresponsive. CM will continue to follow and assist as needed DCP- Discharge Planning Updated by [email or web address]: Susan Benton on 07/06/18 8:[address] SPOKE WITH DAUGHTER AND SON (VIA PHONE) THEY WOULD LIKE INFORMATION ABOUT HOSPICE & TO SPEAK WITH A MD. NAIMA WITH [facility] CAME UP AND SPOKE WITH THE DAUGHTER. I CALLED SALVATORE SAVAGE ABOUT HOSPICE AND SHE STATED THAT DR CROWDER WILL NEED TO BE THE ONE TO SPEAK WITH THE FAMILY, BECAUSE SHE IS THE ONE TREATING THE CANCER. I CALLED DR CROWDER AND SHE CAME AND SPOKE WITH THE DAUGHTER. NEW ORDER RECEIVED FOR HOSPICE CONSULT. ORDER FAXED TO NAIMA. CM WILL CONTINUE TO FOLLOW AND ASSIST WITH DC PLANNING DCP- Discharge Planning Updated by [email or web address]: Liseth Mosley on 07/03/18 6:[address] Patient Name: JORGE BOWMAN Admission Status: ER Accout number: [id number] Admission Date: 07-03-2018 : 1945 Admission Diagnosis: Attending: CARMELO CHAVEZ Current LOS: 1 Anticipated DC Date: 07-08-2018 Planned Disposition: Home Health Service Primary Insurance: WELL[employer]ARE MEDICARE ADV Discharge Planning Comments: CM met with patient and her daughterMinda to complete initial dc planning assessment. Patient disoriented and not able to answer questions at time of assessment. CM educated Minda on the CM role and verbal consent given by Minda to complete assessment. Patient lives at home on her daughter's property. Since discharge on the 27 of June her nephew has been staying with her. She also has [facility] whom has been seeing her. She has not had visits by House Calls at this time according to Minda. Minda reports the confusion is new onset for patient. Minda had multiple questions regarding nursing homes and assisted livings. CM answered questions and informed her that the patient would need to apply for [facility] medicaid. She verbalized understanding. At discharge Minda hopes the patient can return home with resumption of home health. Minda is not sure what is going to be needed at this time for discharge. CM will continue to follow and will assist as needed with dc plans/needs. Certified Orthoptist: Liseth Mosley RN, [facility] DCPIA - Discharge Planning Initial Assessment Updated by [email or web address]: Liseth Mosley on 07/03/18 7:13 pm * Is the patient Alert and Oriented? No * How many steps to enter\exit or inside your home? * PCP Dr. Megha Wan * Pharmacy [facility] in [place] * Preadmission Environment Home with Family * ADLs Partial Dependent * Partial ADLs (Assistance needed) Ambulation * Equipment Cane Nebulizer Oxygen Rolling Walker Shower Chair * Other Equipment [employer] is O2 provider * List name and contact numbers for known caregivers / representatives who currently or will assist patient after discharge: Minda Perez - daughter - [phone] Dagoberto Bowman - son - [phone] * Verbal permission to speak to the caregivers and representatives has been obtained from the patient. Yes * Community resources currently utilized Home Health * Please name any agencies selected above. [facility] * Additional services required to return to the preadmission environment? Yes * Can the patient safely return to the preadmission environment? No * Has this patient been hospitalized within the prior 30 days at any hospital? Yes Coverage Notice Reviewer: [email or web address] Baldo Benton Notice Issued Date-Time: 07/06/2018 9:00 Notice Type: IM Discharge Notice Notice Delivered To: Family Member Relationship to Patient: Daughter Global Account Executive Name: minda Delivery Method: HAND - Hand Delivered Danuta Days: Prior Verbal Notification: Yes Recipient Understood Notice: Yes Recipient Signature: Med Rec Note Co-signed by Attending: Coverage Notice Comment: Last DP export: 07/06/18 10:19 a Patient Name: JORGE BOWMAN Page [phone] at 1149 All edits/amendments must be made on the electronic document DICTATION DATE: 07/08/18 1148 QUESTIONED DOCUMENTS EXAMINER: NISSA 07/08/18 1148 RPT#: [id number] DC DATE:07/06/18 STATUS: DIS IN [facility] [address] [place] [address] END OF REPORT
== END 2018-07-06 11:14 | disposition hospice, inpatient (51) | DRG 70 ==
LOC: D.ER 16:19 → D.EDHOLD 17:36 → D.MS 17:36
PROVIDERS: Emergency Medicine; Family Medicine; ADMIT Internal Medicine Nephrology
DX: G93.41 Metabolic encephalopathy (principal); J18.9 Pneumonia, unspecified organism; D61.811 Other drug-induced pancytopenia; J96.02 Acute respiratory failure with hypercapnia; C34.31 Malignant neoplasm of lower lobe, right bronchus or lung; D70.1 Agranulocytosis secondary to cancer chemotherapy; R06.89 Other abnormalities of breathing; F32.9 Major depressive disorder, single episode, unspecified

== ENCOUNTER 2018-07-06 11:23 | Inpatient (IN) | payer OTHER ==
[2018-07-04 16:14] VITALS: BMI 26.4
[~2018-07-06 11:23] MED LIST changes: +DIFLUCAN100 MG PO; +GRANIX300 MCG/0. SC; +Levaquin PREMIX IV; +MAXIPIME 2 GM/D52 G1 IV; +VANCOMYCIN 1 GM/1 G1 IV
--- NOTE | 2018-07-06 14:06 | NUR ---
PATIENT TAKEN OFF OF BIPAP PER HOSPICE ORDER AND PLACED ON 4L NC.
== END 2018-07-06 16:08 | DRG 951 ==
LOC: D.MS 11:23
PROVIDERS: ADMIT Legal Medicine
DX: Z51.5 Encounter for palliative care (principal)